=== PATIENT | male | born 1965 | race African-American/Black ===

== ENCOUNTER 2017-12-09 13:53 | Inpatient (IN) | payer BC, MEDICAID ==
[2017-12-09] MEDS ORDERED: Nitroglycerin TAB 0.4 MG* 0.4 MG TAB ONE (14:13)
[2017-12-09] MEDS ORDERED: Morphine INJ* 4 MG/ML 1 ML CARPUJECT ONE (14:13)
[2017-12-09] MEDS ORDERED: Ondansetron INJ* 2 MG/ML VIAL ONE (14:13)
[2017-12-09] MEDS: Nitroglycerin TAB 0.4 MG* 0.4 MG TAB SL ONE ×2 (14:15→14:21)
[2017-12-09] MEDS ORDERED: Morphine INJ* 4 MG/ML 1 ML CARPUJECT IV ONE ×2 (14:17→15:25)
[2017-12-09] MEDS ORDERED: Ondansetron INJ* 2 MG/ML VIAL IV ONE (14:17)
[2017-12-09] MEDS ORDERED: Aspirin TAB* 325 MG PO ONE (14:18)
[2017-12-09 14:29] LABS: ABS Basophils 0 10^3/ul (0-0.2); ABS Eosinophils 0.3 10^3/ul (0-0.6); ABS Lymphocytes 2.7 10^3/ul (1.0-4.8); ABS Neutrophils 6.6 10^3/ul (1.5-7.7); ABS Nucleated RBC 0 10^3/ul; Eosinophil % 2.5 % (0-6); Hematocrit 44 % (42-52); Hemoglobin 14.9 g/dl (14.0-18.0); Lymphocyte % 25.4 % (25-47); Mean Corpuscular HGB Conc 34 g/dl (31-36); Mean Corpuscular Hemoglobin 31 pg (27-31); Mean Corpuscular Volume 91 fL (80-94); Mean Platelet Volume 8 um3 (7.4-10.4); Nucleated Red Blood Cells % 0.1; Platelet Count 234 10^3/ul (150-450); Red Blood Count 4.81 10^6/ul (4.0-5.4); Red Cell Distribution Width 13 % (10.5-15); White Blood Count 10.7 10^3/ul (3.5-10.8)
[2017-12-09] MEDS ORDERED: LORazepam INJ* 2 MG/ML 1 ML VIAL IV PUSH ONE ×2 (14:31→15:25)
--- NOTE | 2017-12-09 14:46 | RAD ---
INDICATION: Chest pain. COMPARISON: Comparison is made with a prior chest x-ray study from June 16, 2008. TECHNIQUE: A portable view of the chest was obtained. FINDINGS: The patient is status post sternotomy. The heart is within normal limits in size. The lungs are underinflated and clear. No pleural effusion is seen. IMPRESSION: NO EVIDENCE FOR ACUTE DISEASE.
[2017-12-09 14:47] LABS: EGFR Non-African American 77.3 (>60)
[2017-12-09 14:49] LABS: INR 0.98 (0.77-1.02)
--- NOTE | 2017-12-09 15:12 | RAD ---
Indication: Shortness of breath and chest pain. History of prior DVT and PE. Comparison: December 09, 2017 chest radiograph. Technique: Following administration of 9.200 mCi xenon-133 by inhalation anterior and posterior ventilation images were obtained. Following the administration of 6.200 mCi of Tc-99m macroaggregated albumin, perfusion images were obtained in multiple projections. Report: The ventilation pattern is uniform with no evidence of air trapping. Solitary peripheral subsegmental perfusion defect at the level of the posterior lateral basal segments of the LEFT lower lobe reference the LPO view. No additional compelling perfusion defects evident. IMPRESSION: Solitary subsegmental perfusion defect at the LEFT lung base without corresponding ventilation or radiographic abnormality. Given absence of additional subsegmental or larger mismatched perfusion defects the exam is consistent with low probability for pulmonary embolism.
[2017-12-09] MEDS ORDERED: NS 0.9% 1000 ML* 1,000 ML IV ONE (16:00)
--- NOTE | 2017-12-09 16:26 | ED ---
Karri Pan Nilda, scribed for Jovon Connell MD on 12/09/17 at 1419 . HPI Chest Pain - HPI Summary HPI Summary: This patient is a 52 year old M presenting to [facility] with a chief complaint of constant moderate left-sided CP that radiates to left shoulder and left jaw since 1 hour ago. The patient rates the pain 6/10 in severity. Symptoms aggravated by exertion and recent stress (fight with brother and loss in the family). Symptoms alleviated by nothing including 3 NTG taken EPIC PROFESSIONAL 20 mins ago. Patient reports tingling in left arm, SOB, and BARAHONA (past couple of weeks). He states he has been recently travelling for the past 3 days. Pt states he's not on blood thinners and that he was told that he was not a good candidate for Coumadin. Pt had similar episode yesterday and visited an ED in [place] but left AMA. He notes he usually walks out of EDs AMA due to feeling anxious. Pt currently smokes 1 cigarette per day, does not drink ETOH, and intermittently uses marijuana. PMHx includes PA, CAD, lung issues, and CVA. PSHx CABG (2006) in [place], and filter in legs and lungs. - History of Current Complaint Chief Complaint: EDChestPainROMI Time Seen by Provider: 12/09/17 14:03 Hx Obtained From: Patient Onset/Duration: Started Hours Ago - 1 hour Timing: Constant Current Severity: Moderate Pain Intensity: 6 Pain Scale Used: 0-10 Numeric Chest Pain Location: Left Lateral Chest Pain Radiates: Yes Chest Pain Radiates To:: Shoulder - left, Jaw - left Aggravating Factor(s): Exertion, Other: - recent stress Alleviating Factor(s): Nothing Associated Signs and Symptoms: Positive: Other: - reports constant moderate left -sided CP that radiates to left shoulder and left jaw, tingling in left arm, SOB , and BARAHONA (past couple of weeks). - Allergy/Home Medications Allergies/Adverse Reactions: Allergies Allergy/AdvReac Type Severity Reaction Status Date / Time Fish Allergy Allergy Severe Anaphylatic Verified 12/09/17 14:20 Shock Iodine Allergy Severe Anaphylatic Verified 12/09/17 14:19 Shock Home Medications: Home Medications Aspirin EC Low Dose* [Ecotrin EC Low Dose 81 MG*] 81 mg PO DAILY 12/09/17 [ History Confirmed 12/09/17] Cyclobenzaprine TAB* [Flexeril 10 MG TAB*] 10 mg PO DAILY PRN 12/09/17 [History Confirmed 12/09/17] Metoprolol Tartrate TAB* [Lopressor TAB*] 25 mg PO QAM 12/09/17 [History Confirmed 12/09/17] Simvastatin TAB(NF) [Zocor(NF)] 20 mg PO QPM 12/09/17 [History Confirmed ] traZODone TAB* [Desyrel TAB*] 50 mg PO BEDTIME 12/09/17 [History Confirmed 12/09] PMH/Surg Hx/FS Hx/Imm Hx Cardiovascular History: Reports: Hx Coronary Artery Disease, Hx Myocardial Infarction Respiratory History: Reports: Hx Pulmonary Embolism Neurological History: Reports: Hx CVA - Surgical History Surgery Procedure, Year, and Place: CABG 2006 [place]. Filter in legs and lungs Infectious Disease History: No Infectious Disease History: Denies: Traveled Outside the [place] in Last 30 Days - Family History Known Family History: Positive: Other - lung CA and prostate CA - Social History Alcohol Use: None Hx Substance Use: Yes Substance Use Type: Reports: Marijuana Hx Tobacco Use: Yes Smoking Status (MU): Light Every Day Tobacco Smoker Type: Cigarettes Review of Systems Negative: Fever, Chills Negative: Erythema Negative: Sore Throat Positive: Chest Pain - left-sided CP that radiates to left shoulder and left jaw Positive: Shortness Of Breath, Other - BARAHONA, past couple of weeks. Negative: Cough Negative: Abdominal Pain, Vomiting, Nausea Negative: dysuria, hematuria Positive: Other - left arm tingling. Negative: Myalgia, Edema Negative: Rash Neurological: Other - negative dizziness All Other Systems Reviewed And Are Negative: Yes Physical Exam - Summary Physical Exam Summary: Constitutional: Well-developed, Well-nourished, Alert. (-) Distressed Skin: Warm, Dry, Scarring over veins in arms, sternotomy scar HENT: Normocephalic; Atraumatic Eyes: Conjunctiva normal Neck: Musculoskeletal ROM normal neck. (-) JVD, (-) Stridor, (-) Tracheal deviation Cardio: Rhythm regular, rate normal, Heart sounds normal; Intact distal pulses; The pedal pulses are 2+ and symmetric. Radial pulses are 2+ and symmetric. (-) Murmur Pulmonary/Chest wall: Effort normal. (-) Respiratory distress, (-) Wheezes, (-) Rales Abd: Soft, (-) Tenderness, (-) Distension, (-) Guarding, (-) Rebound Musculoskeletal: (-) Edema Lymph: (-) Cervical adenopathy Neuro: Alert, Oriented x3 Psych: Anxious Triage Information Reviewed: Yes Vital Signs On Initial Exam: Initial Vitals Temp Pulse Resp BP Pulse Ox 98.7 F 115 24 171/109 97 12/09/17 13:54 12/09/17 13:54 12/09/17 13:54 12/09/17 13:54 12/09/17 13:54 Vital Signs Reviewed: Yes Diagnostics - Vital Signs Vital Signs Temp Pulse Resp BP Pulse Ox 12/09/17 13:54 98.7 F 115 24 171/109 97 - Laboratory Lab Results: Lab Results 12/09/17 12/09/17 12/09/17 Range/Units 14:10 14:10 14:10 WBC 10.7 (3.5-10.8) 10^3/ul RBC 4.81 (4.0-5.4) 10^6/ul Hgb 14.9 (14.0-18.0) g/dl Hct 44 (42-52) % MCV 91 (80-94) fL MCH 31 (27-31) pg MCHC 34 (31-36) g/dl RDW 13 (10.5-15) % Plt Count 234 (150-450) 10^3/ul MPV 8 (7.4-10.4) um3 Neut % (Auto) 62.2 (38-83) % Lymph % (Auto) 25.4 (25-47) % [place] % (Auto) 9.5 H (1-9) % Eos % (Auto) 2.5 (0-6) % Baso % (Auto) 0.4 (0-2) % Absolute Neuts (auto) 6.6 (1.5-7.7) 10^3/ul Absolute Lymphs (auto) 2.7 (1.0-4.8) 10^3/ul Absolute Monos (auto) 1.0 H (0-0.8) 10^3/ul Absolute Eos (auto) 0.3 (0-0.6) 10^3/ul Absolute Basos (auto) 0 (0-0.2) 10^3/ul Absolute Nucleated RBC 0 10^3/ul Nucleated RBC % 0.1 INR (Anticoag Therapy) (0.77-1.02) APTT (26.0-36.3) seconds Sodium 138 (133-145) mmol/L Potassium 3.7 (3.5-5.0) mmol/L Chloride 105 (101-111) mmol/L Carbon Dioxide 22 (22-32) mmol/L Anion Gap 11 (2-11) mmol/L BUN 21 (6-24) mg/dL Creatinine 1.02 (0.67-1.17) mg/dL Est GFR ( Amer) 99.4 (>60) Est GFR (Non-Af Amer) 77.3 (>60) BUN/Creatinine Ratio 20.6 H (8-20) Glucose 122 H (70-100) mg/dL Lactic Acid 2.5 H* (0.5-2.0) mmol/L Calcium 9.6 (8.6-10.3) mg/dL Total Bilirubin 0.60 (0.2-1.0) mg/dL AST 28 (13-39) U/L ALT 27 (7-52) U/L Alkaline Phosphatase 110 H (34-104) U/L Troponin I 0.01 (<0.04) ng/mL Total Protein 7.6 (6.4-8.9) g/dL Albumin 4.6 (3.2-5.2) g/dL Globulin 3.0 (2-4) g/dL Albumin/Globulin Ratio 1.5 (1-3) 12/09/17 Range/Units 14:10 WBC (3.5-10.8) 10^3/ul RBC (4.0-5.4) 10^6/ul Hgb (14.0-18.0) g/dl Hct (42-52) % MCV (80-94) fL MCH (27-31) pg MCHC (31-36) g/dl RDW (10.5-15) % Plt Count (150-450) 10^3/ul MPV (7.4-10.4) um3 Neut % (Auto) (38-83) % Lymph % (Auto) (25-47) % [place] % (Auto) (1-9) % Eos % (Auto) (0-6) % Baso % (Auto) (0-2) % Absolute Neuts (auto) (1.5-7.7) 10^3/ul Absolute Lymphs (auto) (1.0-4.8) 10^3/ul Absolute Monos (auto) (0-0.8) 10^3/ul Absolute Eos (auto) (0-0.6) 10^3/ul Absolute Basos (auto) (0-0.2) 10^3/ul Absolute Nucleated RBC 10^3/ul Nucleated RBC % INR (Anticoag Therapy) 0.98 (0.77-1.02) APTT 33.9 (26.0-36.3) seconds Sodium (133-145) mmol/L Potassium (3.5-5.0) mmol/L Chloride (101-111) mmol/L Carbon Dioxide (22-32) mmol/L Anion Gap (2-11) mmol/L BUN (6-24) mg/dL Creatinine (0.67-1.17) mg/dL Est GFR ( Amer) (>60) Est GFR (Non-Af Amer) (>60) BUN/Creatinine Ratio (8-20) Glucose (70-100) mg/dL Lactic Acid (0.5-2.0) mmol/L Calcium (8.6-10.3) mg/dL Total Bilirubin (0.2-1.0) mg/dL AST (13-39) U/L ALT (7-52) U/L Alkaline Phosphatase (34-104) U/L Troponin I (<0.04) ng/mL Total Protein (6.4-8.9) g/dL Albumin (3.2-5.2) g/dL Globulin (2-4) g/dL Albumin/Globulin Ratio (1-3) Result Diagrams: 12/09/17 14:10 12/09/17 14:10 Lab Statement: Any lab studies that have been ordered have been reviewed, and results considered in the medical decision making process. - Radiology CXR Radiology Interpretation Completed By: Radiologist - CXR, per radiologist, reveals NAD. Dr. Connell has reviewed this radiology report. - EKG 1525 Cardiac Rate: NL EKG Rhythm: Sinus Rhythm - 95 bpm EKG Interpretation: no STEMI - Additional Comments Diagnostic Additional Comments: Lung perfusion, per radiologist, reveals Solitary subsegmental perfusion defect at the LEFT lung base without corresponding ventilation or radiographic abnormality. Given absence of additional subsegmental or larger mismatched perfusion defects the exam is consistent with low probability for pulmonary embolism. Dr. Connell has reviewed this radiology report. Re-Evaluation - Re-Evaluation First Eval Re-Evaluation Time: 15:20 Comment: Pain subsided but is returning 7/10. Pt states his brother would not tell him what he put in his marijuana and that brother often plays pranks on him. He is suspicious that his marijuana was laced with other drugs. Second Eval Re-Evaluation Time: 16:04 Comment: Pt called older brother on phone who talked to younger brother ( prankster). Younger brother admits to lacing marijuana with cocaine. Pt agreeable to hospital admission. Chest Pain Course/Dx - Course Assessment/Plan: This patient is a 52 year old M presenting to [facility] with a chief complaint of constant moderate left-sided CP that radiates to left shoulder and left jaw since 1 hour ago. The patient rates the pain 6/10 in severity. Symptoms aggravated by exertion and recent stress (fight with brother and loss in the family). Symptoms alleviated by nothing including 3 NTG taken EPIC PROFESSIONAL 20 mins ago. Patient reports tingling in left arm, SOB, and BARAHONA (past couple of weeks). He states he has been recently travelling for the past 3 days. Pt states he's not on blood thinners and that he was told that he was not a good candidate for Coumadin. Pt had similar episode yesterday and visited an ED in [place] but left AMA. He notes he usually walks out of EDs AMA due to feeling anxious. Pt currently smokes 1 cigarette per day, does not drink ETOH , and intermittently uses marijuana. PMHx includes PA, CAD, lung issues, and CVA. PSHx CABG (2006) in [place], and filter in legs and lungs. Pending EKG, CXR, Lung Perfusion, and Labs. Blood work is without significant abnormalities except elevated lactic (2.5). An EKG reveals NSR, 95 bpm, no STEMI. Lung perfusion, per radiologist, reveals Solitary subsegmental perfusion defect at the LEFT lung base without corresponding ventilation or radiographic abnormality. Given absence of additional subsegmental or larger mismatched perfusion defects the exam is consistent with low probability for pulmonary embolism. Dr. Connell has reviewed this radiology report. CXR, per radiologist, reveals NAD. Dr. Connell has reviewed this radiology report. In the ED course, the patient was given aspirin, Ativan, Morphine, NTG, and Zofran. 1620 Dr. Varela (Hospitalist) agrees to admit pt. The pt is stable and will be admitted with a diagnosis of CP unspecified and cocaine CP. Pt understands and is agreeable to this plan. Pt did have relief of chest pain with nitro, morphine and ativan during today's visit. Rule out ACS in this pt with known CAD/CABG - Diagnoses Provider Diagnoses: cocaine chest pain, Chest pain, unspecified - Provider Notifications Discussed Care Of Patient With: Adriana Varela - Hospitalist Time Discussed With Above Provider: 16:20 Instructed by Provider To: Admit As Inpatient Discharge - Discharge Plan Condition: Stable Disposition: ADMITTED TO [facility] Referrals: No Primary Care Phys,NOPCP [Primary Care Provider] - The documentation as recorded by the Karri keen Nilda accurately reflects the service I personally performed and the decisions made by , Jovon Connell MD.
[2017-12-09] MEDS: Nitroglycerin TAB 0.4 MG* 0.4 MG TAB SL PRN ×2 (18:37→18:45)
[2017-12-09] MEDS ORDERED: Cyclobenzaprine TAB* 10 MG PO PRN (18:38)
[2017-12-09] MEDS: LORazepam TAB(*) 1 MG PO PRN (19:15)
[2017-12-09] MEDS: Acetaminophen TAB* 325 MG PO PRN (19:15)
--- NOTE | 2017-12-09 23:16 | HP ---
HISTORY AND PHYSICAL: DATE OF ADMISSION: 12/09/17 PRIMARY CARE PHYSICIAN: Unknown. COMMERCIAL SALES REPRESENTATIVE: Unknown. CHIEF COMPLAINT: Chest pain. HISTORY OF PRESENT ILLNESS: This is a 52-year-old male with a history of coronary artery disease, status post CABG, PE and CVA, who presents with chest pain for 2 days after smoking marijuana that was laced with cocaine. He reports the pain as in the middle of the chest with radiation to both arms. It is unchanged with exertion, but sometimes gets worse with lying down flat. It is not associated with diaphoresis, nausea, vomiting, but does occasionally come with shortness of breath, unrelated. He also reports worsening dyspnea on exertion over the past month. He reports that he is losing weight, not gaining and he is unable to tell me where he receives his medical care. He names approximately 8 different facilities where he has had services and procedures, but he is unclear about the timing and reason for each one. He does state that he takes his medications; however, cannot tell me who prescribes them to him. His chest pain is currently resolved. His only complaint right now is feeling anxious and very upset that his brother would lace the marijuana with cocaine. PAST MEDICAL HISTORY: 1. Coronary artery disease, status post CABG. He thinks this was done in [place]. 2. Pulmonary embolus. He thinks this was in 2009, but is not sure where. 3. CVA. 4. Schizophrenia. 5. Brain aneurysm. HOME MEDICATIONS: 1. Metoprolol. 2. Aspirin. 3. Simvastatin. 4. Flexeril. The doses are unclear. FAMILY HISTORY: Significant for coronary artery disease. SOCIAL HISTORY: He has been in several different prisons and jails, and this is where he reports his home is at this time. The closest person in his life is his children's mother, Katina. Katina's phone number [phone]. He smokes 1 cigarette per day. He occasionally drinks alcohol and smokes marijuana. REVIEW OF SYSTEMS: January notes weight loss of 20 pounds over the 3 days, chest pain that is unchanged by exertion, anxiety, and mood swings. He denies orthopnea, weight gain, lower extremity edema, abdominal bloating, or syncope. PHYSICAL EXAMINATION GENERAL: Alert, anxious and in no distress. VITAL SIGNS: Blood pressure 109/90, pulse ox 99% on room air, respiratory rate 23, heart rate 83. HEENT: Some proptosis is noted. Pupils are equal, round and reactive to light. Mucosa is moist. NECK: No JVP. No adenopathy. LUNGS: Clear bilaterally. CHEST: CABG incision is well healed. No pain to palpation. Regular rate and rhythm. No murmurs. PMI is not displaced. ABDOMEN: Soft, nontender, and nondistended. EXTREMITIES: No lower extremity edema. No rashes. NEUROLOGIC: Strength is 5+ throughout. Sensation is intact. Oriented x3, but tangential and anxious. LABORATORY DATA: Troponin 0.01, 0.02. Sodium 138, potassium 3.7, chloride 105 , bicarb 22, creatinine 1.02. White blood cells 10.7, hemoglobin 14.9. UDS is positive for cocaine, cannabinoid and opiates. V/Q scan: Solitary subsegmental perfusion defect at the left lung base without corresponding ventilation or radiographic abnormalities. Given absence of additional subsegmental or larger mismatch perfusion defect, the exam is consistent with low probability for pulmonary embolus. EKG showed normal sinus rhythm with a normal axis, normal intervals and no ST or T wave changes. ASSESSMENT AND PLAN: This is a 52-year-old male with extensive vascular history and schizophrenia presenting with chest pain 2 days after he smoked marijuana laced with cocaine. 1. Atypical chest pain. This is likely associated with his cocaine use. This is concerning in a patient with known coronary disease and he should be monitored and ruled out. His troponins are negative thus far. He needs 1 more to rule him out. EKG is not ischemic. Start nitro p.r.n. 2. Dyspnea on exertion. This is concerning for cardiomyopathy knowing his coronary history. However, may also be associated with pulmonary disease. He does not have other stigmata of heart failure such as orthopnea, weight gain and edema. It may be helpful to get an echo before he leaves. 3. Schizophrenia. He may need psychiatric evaluation as he may not be safe to make decisions for himself based on his interview with me today. 4. Questionable history of pulmonary embolus. It will be helpful to know where this was and what year it was. However, he cannot recall when or where this was diagnosed. 5. Cerebrovascular accident. Again, he is unsure, when or where this was diagnosed. He does report that he takes a baby aspirin daily. We will continue this as well his statins. 6. Admit to telemetry floor for monitoring and chest pain rule out. TIME SPENT: Greater than 60 minutes were spent on this admission. [id number]/[facility] #: [id number] CORBIN
[2017-12-10] MEDS: traZODone TAB* 50 MG TAB PO SCH ×2 (01:45→21:24)
[2017-12-10] MEDS: Acetaminophen TAB* 325 MG PO PRN ×3 (04:12→18:03)
[2017-12-10] MEDS ORDERED: Morphine INJ* 2 MG/ML 1 ML SYRINGE (TWO MG - NEW SYRINGE VERSION) ONE (06:13)
[2017-12-10] MEDS ORDERED: Morphine INJ* 2 MG/ML 1 ML SYRINGE (TWO MG - NEW SYRINGE VERSION) IV ONE (06:15)
[2017-12-10] MEDS: LORazepam TAB(*) 1 MG PO PRN ×4 (07:38→20:09)
[2017-12-10] MEDS: Metoprolol Tartrate TAB* 25 MG PO SCH (07:38)
[2017-12-10] MEDS: Nitroglycerin TAB 0.4 MG* 0.4 MG TAB SL PRN ×4 (07:38→12:00)
[2017-12-10] MEDS: Aspirin EC Low Dose* 81 MG TAB.EC PO SCH (07:38)
[2017-12-10 08:12] LABS: ABS Basophils 0 10^3/ul (0-0.2); ABS Eosinophils 0.2 10^3/ul (0-0.6); ABS Lymphocytes 1.9 10^3/ul (1.0-4.8); ABS Monocytes 0.7 10^3/ul (0-0.8); ABS Neutrophils 3.5 10^3/ul (1.5-7.7); ABS Nucleated RBC 0 10^3/ul; Eosinophil % 3.1 % (0-6); Hematocrit 41 % (42-52); Hemoglobin 13.7 g/dl (14.0-18.0); Lymphocyte % 29.9 % (25-47); Mean Corpuscular HGB Conc 33 g/dl (31-36); Mean Corpuscular Hemoglobin 30 pg (27-31); Mean Corpuscular Volume 92 fL (80-94); Mean Platelet Volume 8 um3 (7.4-10.4); Nucleated Red Blood Cells % 0; Platelet Count 198 10^3/ul (150-450); Red Blood Count 4.51 10^6/ul (4.0-5.4); Red Cell Distribution Width 13 % (10.5-15); White Blood Count 6.3 10^3/ul (3.5-10.8)
[2017-12-10] MEDS ORDERED: Morphine INJ* 2 MG/ML 1 ML SYRINGE (TWO MG - NEW SYRINGE VERSION) IV PRN (08:24)
--- NOTE | 2017-12-10 11:16 | PN ---
Subjective Date of Service: 12/10/17 Interval History: Pt is a very poor historian. sometimes he seems not to be willing to give the information asked. 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 prescribed narcotics to him, pt stated that he was his PCP last year was prescribed Percocet. Apparently pt is planning to relocate to [place] or [place]. Pt c/o CP related to exercise x 2 months. Now pain is "minimal" when lying down in bed. Pain fills like a building sitting on the chest. Objective Active Medications: Acetaminophen (Tylenol Tab*) 650 mg PO Q6H PRN PRN Reason: PAIN Last Admin: 12/10/17 04:12 Dose: 650 mg Aspirin (Aspirin Ec Low Dose*) 81 mg PO DAILY [facility] Last Admin: 12/10/17 07:38 Dose: 81 mg Atorvastatin Calcium (Lipitor*) 10 mg PO QPM [facility] Cyclobenzaprine HCl (Flexeril Tab*) 10 mg PO DAILY PRN PRN Reason: PAIN Lorazepam (Ativan Tab(*)) 1 mg PO Q4H PRN PRN Reason: ANXIETY Last Admin: 12/10/17 07:38 Dose: 1 mg Metoprolol Tartrate (Lopressor Tab*) 25 mg PO QAM [facility] Last Admin: 12/10/17 07:38 Dose: 25 mg Nitroglycerin (Nitroglycerin Tab 0.4 Mg*) 0.4 mg SL Q5M PRN PRN Reason: ANGINA Last Admin: 12/10/17 08:05 Dose: 0.4 mg Trazodone HCl (Desyrel Tab*) 50 mg PO BEDTIME [facility] Last Admin: 12/10/17 01:45 Dose: Not Given Vital Signs - 8 hr 12/10/17 12/10/17 12/10/17 04:07 06:14 07:15 Temperature 98.6 F Pulse Rate 78 Respiratory 20 20 20 Rate Blood Pressure 114/67 (mmHg) O2 Sat by Pulse 100 Oximetry 12/10/17 12/10/17 12/10/17 07:38 07:39 07:53 Temperature Pulse Rate Respiratory 20 20 Rate Blood Pressure 122/82 118/78 (mmHg) O2 Sat by Pulse Oximetry 12/10/17 12/10/17 12/10/17 08:06 09:02 09:30 Temperature 97.5 F Pulse Rate 95 Respiratory 18 18 18 Rate Blood Pressure 116/88 (mmHg) O2 Sat by Pulse 100 Oximetry 12/10/17 10:08 Temperature Pulse Rate Respiratory 16 Rate Blood Pressure (mmHg) O2 Sat by Pulse Oximetry Oxygen Devices in Use Now: None Appearance: 52 yo M in nAD, aAOx3, very poor and disorganized historian Eyes: No Scleral Icterus, PERRLA Ears/Nose/Mouth/Throat: NL Teeth, Lips, Gums, Mucous Membranes Moist Neck: NL Appearance and Movements; NL JVP, Trachea Midline Respiratory: Symmetrical Chest Expansion and Respiratory Effort, Clear to Auscultation Cardiovascular: NL Sounds; No Murmurs; No JVD, RRR Abdominal: NL Sounds; No Tenderness; No Distention, No Hepatosplenomegaly Lymphatic: No Cervical Adenopathy Extremities: No Edema, No Clubbing, Cyanosis Skin: No Rash or Ulcers, No Nodules or Sclerosis Neurological: Alert and Oriented x 3, NL Muscle Strength and Tone Result Diagrams: 12/10/17 07:53 12/10/17 07:53 Additional Lab and Data: Lab Results 12/09/17 12/09/17 12/09/17 Range/Units 14:10 14:10 14:10 WBC 10.7 (3.5-10.8) 10^3/ul RBC 4.81 (4.0-5.4) 10^6/ul Hgb 14.9 (14.0-18.0) g/dl Hct 44 (42-52) % MCV 91 (80-94) fL MCH 31 (27-31) pg MCHC 34 (31-36) g/dl RDW 13 (10.5-15) % Plt Count 234 (150-450) 10^3/ul MPV 8 (7.4-10.4) um3 Neut % (Auto) 62.2 (38-83) % Lymph % (Auto) 25.4 (25-47) % [place] % (Auto) 9.5 H (1-9) % Eos % (Auto) 2.5 (0-6) % Baso % (Auto) 0.4 (0-2) % Absolute Neuts (auto) 6.6 (1.5-7.7) 10^3/ul Absolute Lymphs (auto) 2.7 (1.0-4.8) 10^3/ul Absolute Monos (auto) 1.0 H (0-0.8) 10^3/ul Absolute Eos (auto) 0.3 (0-0.6) 10^3/ul Absolute Basos (auto) 0 (0-0.2) 10^3/ul Absolute Nucleated RBC 0 10^3/ul Nucleated RBC % 0.1 INR (Anticoag Therapy) (0.77-1.02) APTT (26.0-36.3) seconds Sodium 138 (133-145) mmol/L Potassium 3.7 (3.5-5.0) mmol/L Chloride 105 (101-111) mmol/L Carbon Dioxide 22 (22-32) mmol/L Anion Gap 11 (2-11) mmol/L BUN 21 (6-24) mg/dL Creatinine 1.02 (0.67-1.17) mg/dL Est GFR ( Amer) 99.4 (>60) Est GFR (Non-Af Amer) 77.3 (>60) BUN/Creatinine Ratio 20.6 H (8-20) Glucose 122 H (70-100) mg/dL Lactic Acid 2.5 H* (0.5-2.0) mmol/L Calcium 9.6 (8.6-10.3) mg/dL Total Bilirubin 0.60 (0.2-1.0) mg/dL AST 28 (13-39) U/L ALT 27 (7-52) U/L Alkaline Phosphatase 110 H (34-104) U/L Troponin I 0.01 (<0.04) ng/mL Total Protein 7.6 (6.4-8.9) g/dL Albumin 4.6 (3.2-5.2) g/dL Globulin 3.0 (2-4) g/dL Albumin/Globulin Ratio 1.5 (1-3) 12/09/17 Range/Units 14:10 WBC (3.5-10.8) 10^3/ul RBC (4.0-5.4) 10^6/ul Hgb (14.0-18.0) g/dl Hct (42-52) % MCV (80-94) fL MCH (27-31) pg MCHC (31-36) g/dl RDW (10.5-15) % Plt Count (150-450) 10^3/ul MPV (7.4-10.4) um3 Neut % (Auto) (38-83) % Lymph % (Auto) (25-47) % [place] % (Auto) (1-9) % Eos % (Auto) (0-6) % Baso % (Auto) (0-2) % Absolute Neuts (auto) (1.5-7.7) 10^3/ul Absolute Lymphs (auto) (1.0-4.8) 10^3/ul Absolute Monos (auto) (0-0.8) 10^3/ul Absolute Eos (auto) (0-0.6) 10^3/ul Absolute Basos (auto) (0-0.2) 10^3/ul Absolute Nucleated RBC 10^3/ul Nucleated RBC % INR (Anticoag Therapy) 0.98 (0.77-1.02) APTT 33.9 (26.0-36.3) seconds Sodium (133-145) mmol/L Potassium (3.5-5.0) mmol/L Chloride (101-111) mmol/L Carbon Dioxide (22-32) mmol/L Anion Gap (2-11) mmol/L BUN (6-24) mg/dL Creatinine (0.67-1.17) mg/dL Est GFR ( Amer) (>60) Est GFR (Non-Af Amer) (>60) BUN/Creatinine Ratio (8-20) Glucose (70-100) mg/dL Lactic Acid (0.5-2.0) mmol/L Calcium (8.6-10.3) mg/dL Total Bilirubin (0.2-1.0) mg/dL AST (13-39) U/L ALT (7-52) U/L Alkaline Phosphatase (34-104) U/L Troponin I (<0.04) ng/mL Total Protein (6.4-8.9) g/dL Albumin (3.2-5.2) g/dL Globulin (2-4) g/dL Albumin/Globulin Ratio (1-3) Assess/Plan/Problems-Billing Assessment: 52 yo M with h/o CABG in 2008, dyslipidemia, HTN presents with exertional CP - Patient Problems (1) Chest pain Comment: suggestive of stable angina cont ASA, BB, statin Stress test planned for Tuesday. will get Echo tomorrow. cont Nitro prn CP (2) HTN (hypertension) Comment: controlled with meds (3) Dyslipidemia Comment: cont statin check lipid profile (4) Schizophrenia Comment: currently not on meds disorganized thinking. Psych consult requested by pt himself (5) DVT prophylaxis Comment: low risk, ambulation encouraged Status and Disposition: inpatient
[2017-12-10] MEDS: Ondansetron ODT TAB* 4 MG PO PRN ×2 (13:26→20:09)
[2017-12-10] MEDS: Atorvastatin* 10 MG TAB PO SCH (16:09)
[2017-12-11] MEDS: Aspirin EC Low Dose* 81 MG TAB.EC PO SCH (08:20)
[2017-12-11] MEDS: Metoprolol Tartrate TAB* 25 MG PO SCH (08:20)
[2017-12-11] MEDS: Nitroglycerin TAB 0.4 MG* 0.4 MG TAB SL PRN ×3 (08:21→08:43)
[2017-12-11] MEDS: LORazepam TAB(*) 1 MG PO PRN ×3 (08:21→20:03)
[2017-12-11] MEDS: Ondansetron ODT TAB* 4 MG PO PRN (08:38)
--- NOTE | 2017-12-11 13:18 | PN ---
Subjective Date of Service: 12/11/17 Interval History: Pt woke up with CP and sweats. His troponin is neg . now CP free. Objective Active Medications: Acetaminophen (Tylenol Tab*) 650 mg PO Q6H PRN PRN Reason: PAIN Last Admin: 12/10/17 18:03 Dose: 650 mg Aspirin (Aspirin Ec Low Dose*) 81 mg PO DAILY [facility] Last Admin: 12/11/17 08:20 Dose: 81 mg Atorvastatin Calcium (Lipitor*) 10 mg PO QPM [facility] Last Admin: 12/10/17 16:09 Dose: 10 mg Cyclobenzaprine HCl (Flexeril Tab*) 10 mg PO DAILY PRN PRN Reason: PAIN Lorazepam (Ativan Tab(*)) 1 mg PO Q4H PRN PRN Reason: ANXIETY Last Admin: 12/11/17 12:43 Dose: 1 mg Metoprolol Tartrate (Lopressor Tab*) 25 mg PO QAM [facility] Last Admin: 12/11/17 08:20 Dose: 25 mg Nitroglycerin (Nitroglycerin Tab 0.4 Mg*) 0.4 mg SL Q5M PRN PRN Reason: ANGINA Last Admin: 12/11/17 08:43 Dose: 0.4 mg Ondansetron HCl (Zofran Odt Tab*) 4 mg PO Q6H PRN PRN Reason: NAUSEA Last Admin: 12/11/17 08:38 Dose: 4 mg Trazodone HCl (Desyrel Tab*) 50 mg PO BEDTIME [facility] Last Admin: 12/10/17 21:24 Dose: 50 mg Vital Signs - 8 hr 12/11/17 12/11/17 12/11/17 07:51 08:00 08:21 Temperature 98.1 F Pulse Rate 64 Respiratory 16 18 18 Rate Blood Pressure 137/81 (mmHg) O2 Sat by Pulse 100 Oximetry 12/11/17 12/11/17 12/11/17 08:35 08:46 08:52 Temperature Pulse Rate 94 94 109 Respiratory Rate Blood Pressure 119/70 107/85 109/75 (mmHg) O2 Sat by Pulse 99 100 98 Oximetry 12/11/17 12/11/17 12/11/17 11:04 11:36 12:43 Temperature 98.5 F Pulse Rate 84 Respiratory 18 16 16 Rate Blood Pressure 136/80 (mmHg) O2 Sat by Pulse 99 Oximetry Oxygen Devices in Use Now: None Appearance: 52 yo M in nAD, aAOx3 Eyes: No Scleral Icterus, PERRLA Ears/Nose/Mouth/Throat: NL Teeth, Lips, Gums, Mucous Membranes Moist Neck: NL Appearance and Movements; NL JVP, Trachea Midline Respiratory: Symmetrical Chest Expansion and Respiratory Effort, Clear to Auscultation Cardiovascular: NL Sounds; No Murmurs; No JVD, RRR Abdominal: NL Sounds; No Tenderness; No Distention Lymphatic: No Cervical Adenopathy Extremities: No Edema, No Clubbing, Cyanosis Skin: No Rash or Ulcers, No Nodules or Sclerosis Neurological: Alert and Oriented x 3, NL Muscle Strength and Tone Result Diagrams: 12/10/17 07:53 12/10/17 07:53 Additional Lab and Data: Lab Results 12/09/17 12/09/17 12/09/17 Range/Units 14:10 14:10 14:10 WBC 10.7 (3.5-10.8) 10^3/ul RBC 4.81 (4.0-5.4) 10^6/ul Hgb 14.9 (14.0-18.0) g/dl Hct 44 (42-52) % MCV 91 (80-94) fL MCH 31 (27-31) pg MCHC 34 (31-36) g/dl RDW 13 (10.5-15) % Plt Count 234 (150-450) 10^3/ul MPV 8 (7.4-10.4) um3 Neut % (Auto) 62.2 (38-83) % Lymph % (Auto) 25.4 (25-47) % [place] % (Auto) 9.5 H (1-9) % Eos % (Auto) 2.5 (0-6) % Baso % (Auto) 0.4 (0-2) % Absolute Neuts (auto) 6.6 (1.5-7.7) 10^3/ul Absolute Lymphs (auto) 2.7 (1.0-4.8) 10^3/ul Absolute Monos (auto) 1.0 H (0-0.8) 10^3/ul Absolute Eos (auto) 0.3 (0-0.6) 10^3/ul Absolute Basos (auto) 0 (0-0.2) 10^3/ul Absolute Nucleated RBC 0 10^3/ul Nucleated RBC % 0.1 INR (Anticoag Therapy) (0.77-1.02) APTT (26.0-36.3) seconds Sodium 138 (133-145) mmol/L Potassium 3.7 (3.5-5.0) mmol/L Chloride 105 (101-111) mmol/L Carbon Dioxide 22 (22-32) mmol/L Anion Gap 11 (2-11) mmol/L BUN 21 (6-24) mg/dL Creatinine 1.02 (0.67-1.17) mg/dL Est GFR ( Amer) 99.4 (>60) Est GFR (Non-Af Amer) 77.3 (>60) BUN/Creatinine Ratio 20.6 H (8-20) Glucose 122 H (70-100) mg/dL Lactic Acid 2.5 H* (0.5-2.0) mmol/L Calcium 9.6 (8.6-10.3) mg/dL Total Bilirubin 0.60 (0.2-1.0) mg/dL AST 28 (13-39) U/L ALT 27 (7-52) U/L Alkaline Phosphatase 110 H (34-104) U/L Troponin I 0.01 (<0.04) ng/mL Total Protein 7.6 (6.4-8.9) g/dL Albumin 4.6 (3.2-5.2) g/dL Globulin 3.0 (2-4) g/dL Albumin/Globulin Ratio 1.5 (1-3) 12/09/17 Range/Units 14:10 WBC (3.5-10.8) 10^3/ul RBC (4.0-5.4) 10^6/ul Hgb (14.0-18.0) g/dl Hct (42-52) % MCV (80-94) fL MCH (27-31) pg MCHC (31-36) g/dl RDW (10.5-15) % Plt Count (150-450) 10^3/ul MPV (7.4-10.4) um3 Neut % (Auto) (38-83) % Lymph % (Auto) (25-47) % [place] % (Auto) (1-9) % Eos % (Auto) (0-6) % Baso % (Auto) (0-2) % Absolute Neuts (auto) (1.5-7.7) 10^3/ul Absolute Lymphs (auto) (1.0-4.8) 10^3/ul Absolute Monos (auto) (0-0.8) 10^3/ul Absolute Eos (auto) (0-0.6) 10^3/ul Absolute Basos (auto) (0-0.2) 10^3/ul Absolute Nucleated RBC 10^3/ul Nucleated RBC % INR (Anticoag Therapy) 0.98 (0.77-1.02) APTT 33.9 (26.0-36.3) seconds Sodium (133-145) mmol/L Potassium (3.5-5.0) mmol/L Chloride (101-111) mmol/L Carbon Dioxide (22-32) mmol/L Anion Gap (2-11) mmol/L BUN (6-24) mg/dL Creatinine (0.67-1.17) mg/dL Est GFR ( Amer) (>60) Est GFR (Non-Af Amer) (>60) BUN/Creatinine Ratio (8-20) Glucose (70-100) mg/dL Lactic Acid (0.5-2.0) mmol/L Calcium (8.6-10.3) mg/dL Total Bilirubin (0.2-1.0) mg/dL AST (13-39) U/L ALT (7-52) U/L Alkaline Phosphatase (34-104) U/L Troponin I (<0.04) ng/mL Total Protein (6.4-8.9) g/dL Albumin (3.2-5.2) g/dL Globulin (2-4) g/dL Albumin/Globulin Ratio (1-3) Assess/Plan/Problems-Billing Assessment: 52 yo M with h/o CABG in 2008, dyslipidemia, HTN presents with exertional CP - Patient Problems (1) Chest pain Comment: suggestive of stable angina cont ASA, BB, statin Stress test planned for Tuesday. Echo today pending cont Nitro prn CP (2) HTN (hypertension) Comment: controlled with meds (3) Dyslipidemia Comment: cont statin LDL 25 (4) Schizophrenia Comment: currently not on meds disorganized thinking. Psych consult requested by pt himself (5) DVT prophylaxis Comment: low risk, ambulation encouraged Status and Disposition: inpatient
[2017-12-11] MEDS: Atorvastatin* 10 MG TAB PO SCH (16:49)
[2017-12-11] MEDS: traZODone TAB* 50 MG TAB PO SCH (20:00)
--- NOTE | 2017-12-12 06:35 | PTEDU ---
Patient Name: CLAIRE SYLVESTER CLAIRE SYLVESTER selected video: Depression Screening to view on 12/12/2017 at 6:34:43 AM from [id number]
--- NOTE | 2017-12-12 06:43 | PTEDU ---
Patient Name: CLAIRE SYLVESTER CLAIRE SYLVESTER selected video: Abdominal Aortic Aneurysm - Open Repair to view on 12/12/2017 at 6:43:1 3 AM from [id number]
[2017-12-12] MEDS: Aspirin EC Low Dose* 81 MG TAB.EC PO SCH (08:54)
[2017-12-12] MEDS: Metoprolol Tartrate TAB* 25 MG PO SCH (08:54)
[2017-12-12] MEDS: LORazepam TAB(*) 1 MG PO PRN ×2 (08:58→15:56)
[2017-12-12] MEDS ORDERED: Influenza VAC *QUAD* 2017-18* 0.5 ML SYRINGE IM ONE (09:00)
--- NOTE | 2017-12-12 09:04 | ECHO ---
Patient: JANUARY, CLAIRE [facility] Rec#: [id number] : 1965 Date: 12/12/2017 Age: 52y Height: 175.26 cm / 69.0 in Weight: 100.24 kg / 220.9 lbs Sex: M BSA: 2.16 Room#: [facility] Admit Date#: 12/09/2017 Type: Inpatient Referring: Rebeca Malave MD Reading: Colt Gan MD Studio Potter: Isabelle Yu [facility] Transthoracic Echocardiogram Indication: CP BP: 152/86 HR: 96 Rhythm: NSR Findings History: CAD,CABG,s/p partial pericardial window 2004,CVA,schizophrenia,brain aneurysm. Technical Comments: The study quality is good. Completed at 0840. Left Ventricle: The left ventricular chamber size is normal. Mild to moderate concentric left ventricular hypertrophy is observed. The estimated ejection fraction is greater than 65%. Abnormal left ventricular diastolic function is observed. Abnormal left ventricular diastolic filling is observed, consistent with impaired relaxation. Left Atrium: The left atrial chamber size is normal. Right Ventricle: The right ventricle wall thickness is mildly increased.6 mm. The right ventricular cavity size is normal. The right ventricular global systolic function is mildly reduced. Flattened in systole and diastole consistent with right ventricular pressure and volume overload. Right Atrium: The right atrial cavity size is normal. Aortic Valve: The aortic valve is trileaflet. The aortic valve leaflets are mildly thickened. There is mild aortic regurgitation. There is no evidence of aortic stenosis. Mitral Valve: The mitral valve leaflets are mildly thickened. There is no evidence of mitral regurgitation. There is no evidence of mitral stenosis. Tricuspid Valve: The tricuspid valve leaflets are normal. There is no evidence of tricuspid valve regurgitation. Unable to estimate the right ventricular systolic pressure. There is no tricuspid stenosis. Pulmonic Valve: The pulmonic valve appears normal. There is a trace pulmonic regurgitation. There is no pulmonic stenosis. Pericardium: The pericardium appears normal. There is no pericardial effusion. Aorta: There is no dilatation of the ascending aorta. There is no dilatation of the aortic arch. There is no dilation of the aortic root. Pulmonary Artery: The main pulmonary artery appears normal. Venous: The venous system is not well visualized. Conclusions Mild to moderate concentric left ventricular hypertrophy is observed. The estimated ejection fraction is greater than 65%. Abnormal left ventricular diastolic filling is observed, consistent with impaired relaxation. The right ventricle wall thickness is mildly increased.6 mm. The right ventricular global systolic function is mildly reduced. The aortic valve leaflets are mildly thickened. There is mild aortic regurgitation. Unable to estimate the right ventricular systolic pressure. No significant MR orTR seen. Compared to 2008, the degree of LVH has increased from mild and the RV hypokinesis/septal flattening/RVH are new. Measurements Name Value Normal Range RVIDd (AP) 2D 2.7 cm (0.9 - 2.6) RVDdMajor (2D) 2.6 cm (2.2 - 4.4) RAd ISD 4CH 4.3 cm (3.4 - 4.9) RA (A4C)W 3 cm (2.9 - 4.6) IVSd (2D) 1.1 cm (0.6 - 1) LVPWd (2D) 1.5 cm (0.6 - 1) LVIDd (2D) 3.6 cm (3.6 - 5.4) LVIDs (2D) 2.3 cm - LV FS (2D) 36 % (25 - 45) Aortic Annulus 2.1 cm (1.4 - 2.6) Ao root diameter (2D) 2.9 cm (2.1 - 3.5) Ascending Ao 2.9 cm (2.1 - 3.4) Aortic arch 2.3 cm (1.8 - 3.4) LA dimension (AP) 2D 3.3 cm (2.3 - 3.8) LAd ISD 4CH 4.7 cm (2.9 - 5.3) LA ISD 4CH W 3.1 cm (2.5 - 4.5) Name Value Normal Range LA ESV SP 4CH (A/L) 21 ml - LA ESV SP 2CH (A/L) 46 ml - LA ESV BP (A/L) 34 ml - LA ESV BP (A/L) index 15.52 ml/m2 - LA ESV SP 4CH (MOD) 20 ml - LA ESV SP 2CH (MOD) 43 ml - Name Value Normal Range MV E-wave Vmax 0.5 m/sec - MV deceleration time 185 msec - MV A-wave Vmax 0.6 m/sec - MV E:A ratio 0.89 ratio - LV septal e' Vmax 0.06 m/sec - LV lateral e' Vmax 0.1 m/sec - LV E:e' septal ratio 8.33 ratio - LV E:e' lateral ratio 5 ratio - Name Value Normal Range AV Vmax 1.3 m/sec - AV VTI 18.9 cm - AV peak gradient 7.67 mmHg - AV mean gradient 2.89 mmHg - LVOT Vmax 1 m/sec - LVOT VTI 18.3 cm - LVOT peak gradient 4.36 mmHg - LVOT mean gradient 2.31 mmHg - AR PHT 334 msec - AR peak gradient 100 mmHg - Name Value Normal Range PV Vmax 0.9 m/sec - PV peak gradient 3.09 mmHg -
[2017-12-12] MEDS ORDERED: Aminophylline IV* 25 MG/ML 10 ML VIAL ONE (12:49)
[2017-12-12] MEDS ORDERED: Regadenoson* 0.4 MG/5 ML SYRINGE ONE (12:49)
[2017-12-12] MEDS ORDERED: Metoprolol Tartrate IV* 1 MG/ML 5 ML VIAL ONE (13:45)
[2017-12-12] MEDS ORDERED: Nitroglycerin TAB 0.4 MG* 0.4 MG TAB SL ONE (15:00)
[2017-12-12] MEDS ORDERED: Metoprolol Tartrate IV* 1 MG/ML 5 ML VIAL IV ONE (15:00)
--- NOTE | 2017-12-12 15:11 | RAD ---
Edited for charges. Indication: Chest pain. Myocardial perfusion scan was performed utilizing 1 day protocol. 10.2 mCi of technetium 99m tetrofosmin was injected for the rest portion of the study. Pharmacological stress was applied and 25.7 mCi of technetium 99m tetrofosmin was then injected for the stress portion of the study. There is homogeneous distribution of the radiotracer throughout the left ventricle. The left ventricle appears normal in size. There is a focal area of photopenia which appears to be small involving the anterior wall close to the apex. This likely represents some reversible change. The ejection fraction at stress is 52%. Evaluation of wall motion demonstrates no focal wall motion abnormality. IMPRESSION: There is a small area of reversible change in the anterior wall close to the apex. Normal ejection fraction. ASSESSMENT: Low risk Based on imaging criteria from ACC/AHA 2002 Guideline Update for the Management of Patients With Chronic Stable Angina Table 23. Noninvasive Risk Stratification. Reference. MTDD
[2017-12-12 16:29] VITALS: BP 152/87
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
== END 2017-12-12 17:48 | disposition home or self-care (01) | DRG 199 ==
LOC: ED 13:53 → MEDTELE 16:45
PROVIDERS: ADMIT Internal Medicine; ATTEND Internal Medicine
DX: I11.9 Hypertensive heart disease without heart failure (principal); I67.1 Cerebral aneurysm, nonruptured; I25.118 Atherosclerotic heart disease of native coronary artery with other forms of angina pectoris; F20.9 Schizophrenia, unspecified; F31.9 Bipolar disorder, unspecified; F32.9 Major depressive disorder, single episode, unspecified; F17.210 Nicotine dependence, cigarettes, uncomplicated; F12.10 Cannabis abuse, uncomplicated; Z86.73 Personal history of transient ischemic attack (TIA), and cerebral infarction without residual deficits; Z95.1 Presence of aortocoronary bypass graft; Z86.711 Personal history of pulmonary embolism; Z81.8 Family history of other mental and behavioral disorders; Z79.01 Long term (current) use of anticoagulants
CPT/HCPCS: 36415; 71045; 78452; 78582; 80053; 80061; 80307; 83605; 84443; 84484; 85025; 85610; 85730; 90686; 93005; 93017; 93306; 99284; A9270-GY; A9502; A9540; A9558; J0280; J2060; J2270; J2405; J2785; J3490

== ENCOUNTER 2020-01-01 08:53 | Inpatient (IN) | payer BC ==
--- NOTE | 2020-01-01 09:11 | ED ---
HPI Chest Pain - HPI Summary HPI Summary: The patient is a 54 year-old male arriving by ambulance to [facility] with a chief complaint of sudden onset chest pain beginning around 0800 this morning. He reports that he was sleeping when the pain woke him up an hour ago. The pain radiates into the back, jaw, and upper extremities, and he describes it as a pressure, someone sitting on my chest, the hospital is on top of me. The pain is currently rated 9/10 in severity. He endorses diaphoresis and denies any abdominal pain. In the ambulance, he was given Aspirin, Zofran, two Nitroglycerins which helped, and two more Nitros which did not further alleviate his pain. He has a history of blood clots in his legs and chest, and he is currently on Xarelto. He denies any calf pain or swelling. He states that this pain is similar to when he had a ID about 8 years ago. Past medical history includes angina, pericarditis, CABG, coronary artery disease, hypercholesterolemia, hypertension, CVA, schizophrenia. Current smoker, no EtOH , marijuana and cocaine use (last was a week ago). He currently resides at the [facility] [place] for marijuana use. Medications reviewed. Allergies noted. - History of Current Complaint Chief Complaint: EDChestPainROMI Time Seen by Provider: 01/01/20 09:02 Hx Obtained From: Patient Onset/Duration: Started Minutes Ago, Still Present Time of Onset: 08:00 Timing: Constant Initial Severity: Severe Current Severity: Severe Pain Intensity: 9 Pain Scale Used: 0-10 Numeric Chest Pain Location: Diffuse Chest Pain Radiates: Yes Chest Pain Radiates To:: Back, Arm, Jaw Character: Pressure/Squeezing Aggravating Factor(s): Nothing Alleviating Factor(s): NTG 123 - 4 total in ambulance, first and second helped but third and fourth did not help, EMS Tx - ASA, Zofran Associated Signs and Symptoms: Positive: Chest Pain, Diaphoresis. Negative: Abdominal Pain, Edema, Other: - calf pain Related History: Similar Episode/Dx as: - ID 8 years ago - Additional Pertinent History Primary Care Physician: [id number] - Allergy/Home Medications Allergies/Adverse Reactions: Allergies Allergy/AdvReac Type Severity Reaction Status Date / Time Fish Containing Products Allergy Severe Anaphylatic Verified 01/01/20 11:48 Shock iodine Allergy Severe Anaphylatic Verified 01/01/20 11:48 Shock Home Medications: Home Medications Acetaminophen TAB* [Tylenol TAB*] 650 mg PO Q4H PRN MDD 4 tabs 01/01/20 [ History Confirmed 01/01/20] Multivitamin [Once Daily] 1 each PO DAILY 01/01/20 [History Confirmed 01/01/20] Nitroglycerin TAB 0.4 MG* 0.4 mg SL Q5M PRN 01/01/20 [History Confirmed 01/01/20 ] Rivaroxaban TAB(*) [Xarelto 10 mg (*)] 10 mg PO DAILY 01/01/20 [History Confirmed 01/01/20] Sertraline* [Zoloft*] 50 mg PO DAILY 01/01/20 [History Confirmed 01/01/20] busPIRone TAB* [Buspar TAB *] 15 mg PO TID 01/01/20 [History Confirmed 01/01/20] diPHENhydraMINE PO* [Benadryl PO 25 MG TAB*] 50 - 75 mg PO BEDTIME PRN 01/01/20 [History Confirmed 01/01/20] dilTIAZem HCl [Diltiazem 12Hr ER] 120 mg PO DAILY 01/01/20 [History Confirmed ] fluPHENAZine HCL TAB* [Prolixin TAB*] 5 mg PO Q6H 01/01/20 [History Confirmed ] hydrOXYzine HCL TAB* [Atarax 25 MG TAB*] 25 mg PO Q4HR PRN 01/01/20 [History Confirmed 01/01/20] risperiDONE [Risperidone] 1 mg PO BID 01/01/20 [History Confirmed 01/01/20] PMH/Surg Hx/FS Hx/Imm Hx Endocrine/Hematology History: Denies: Hx Blood Transfusions, Hx Bone Marrow Disease, Hx Systemic Lupus Erythematosus, Hx Sickle Cell Disease, Other Endocrine/Hematological Disorders Cardiovascular History: Reports: Hx Angina, Hx Coronary Artery Disease, Hx Deep Vein Thrombosis, Hx Hypercholesterolemia, Hx Hypertension, Hx Myocardial Infarction - unclear history, Other Cardiovascular Problems/Disorders - possible valve issue, pericarditis Denies: Hx Valvular Heart Disease Respiratory History: Reports: Hx Pulmonary Embolism Denies: Hx Asthma, Hx Chronic Bronchitis, Hx Chronic Obstructive Pulmonary Disease (COPD), Hx Seasonal Allergies, Hx Sleep Apnea GI History: Denies: Hx Crohn's Disease, Hx Diverticulosis, Hx Gastroesophageal Reflux Disease, Hx Hiatal Hernia, Hx Jaundice, Hx Ulcer, Other GI Disorders History: Denies: Hx Chronic Renal Failure, Hx Kidney Infection Musculoskeletal History: Denies: Hx Arthritis, Hx Congenital Bone Abnormalities, Hx Fibromyalgia, Hx Scoliosis, Other Musculoskeletal History Sensory History: Denies: Hx Cataracts, Hx Contacts or Glasses, Hx Vision Problem, Hx Hearing Aid, Hx Hearing Problem, Other Sensory Impairments Opthamlomology History: Denies: Hx Cataracts, Hx Contacts or Glasses, Hx Vision Problem, Other Sensory Impairments Neurological History: Reports: Hx CVA, Hx Headaches Comment Only: Hx Seizures - Unknown. No DX.Pt stated he had one episode of seizure Psychiatric History: Reports: Hx Schizophrenia - Surgical History Surgical History: Yes Surgery Procedure, Year, and Place: CABG 2006 [place]. Filter in legs and lungs Hx Anesthesia Reactions: No Infectious Disease History: No Infectious Disease History: Denies: Hx Clostridium Difficile, Hx Hepatitis, Hx of Known/Suspected MRSA, Hx Shingles, Hx Tuberculosis, Hx Known/Suspected VRE, Traveled Outside the [place] in Last 30 Days - Family History Known Family History: Positive: Other - lung CA and prostate CA - Social History Alcohol Use: None Hx Substance Use: Yes Substance Use Type: Reports: Cocaine, Marijuana Hx Tobacco Use: Yes Smoking Status (MU): Light Every Day Tobacco Smoker Type: Cigarettes Have You Smoked in the Last Year: Yes Review of Systems Positive: Skin Diaphoresis Positive: Chest Pain - pressure, radiating into the back, jaw, arms Negative: Abdominal Pain Negative: Myalgia - calf, Edema All Other Systems Reviewed And Are Negative: Yes Physical Exam - Summary Physical Exam Summary: Constitutional: Well-developed, Well-nourished, Alert. (-) Distressed Skin: Warm, Dry HENT: Normocephalic; Atraumatic Eyes: Conjunctiva normal Neck: Musculoskeletal ROM normal neck. (-) JVD, (-) Stridor, (-) Tracheal deviation Cardio: Rhythm regular, rate normal, Heart sounds normal; Intact distal pulses; The pedal pulses are 2+ and symmetric. Radial pulses are 2+ and symmetric. (-) Murmur Pulmonary/Chest wall: Effort normal. Old sternotomy scar noted. (-) Respiratory distress, (-) Wheezes, (-) Rales Abd: Soft, (-) tenderness, (-) Distension, (-) Guarding, (-) Rebound Musculoskeletal: (-) Edema Lymph: (-) Cervical adenopathy Neuro: Alert, Oriented x3 Psych: Mood and affect Normal Triage Information Reviewed: Yes Vital Signs On Initial Exam: Initial Vitals Temp Pulse Resp BP Pulse Ox 97.6 F 80 22 133/96 99 01/01/20 09:00 01/01/20 09:00 01/01/20 09:00 01/01/20 09:00 01/01/20 09:00 Vital Signs Reviewed: Yes Procedures - Sedation Patient Received Moderate/Deep Sedation with Procedure: No Diagnostics - Vital Signs Vital Signs Temp Pulse Resp BP Pulse Ox 01/01/20 09:00 97.6 F 80 22 133/96 99 - Laboratory Result Diagrams: 01/01/20 09:29 01/01/20 09:29 Lab Statement: Any lab studies that have been ordered have been reviewed, and results considered in the medical decision making process. - Radiology CXR Radiology Interpretation Completed By: Radiologist Summary of Radiographic Findings: Impression: No active cardiopulmonary disease. ED physician has reviewed this report. - EKG 0856 Cardiac Rate: NL - 82 BPM EKG Rhythm: Sinus Rhythm Summary of EKG Findings: EKG at 0856 reveals normal sinus rhythm at rate of 82 BPM, no ischemic changes. Dr. Watts has reviewed and interpreted this EKG. Chest Pain Course/Dx - Course Course Of Treatment: Patient is a 54 year-old male who has a history of ID, pericarditis, and CABG presenting with diffuse chest pain radiating into the back, arms, and jaw onset an hour ago with mild relief by EMS administration of Aspirin, Zofran, and four NTG. Cocaine last used a week ago although currently at [facility] for marijuana use. Physical exam is significant for an old sternotomy scar but is otherwise benign. Patient placed on degreasing solution reclaimer, IV access obtained. Patient administered fluids, Zofran, Nitroglycerin, and Morphine. Blood work obtained without acute abnormality except for alkaline phosphatase of 118. Negative troponin. EKG at 0856 reveals normal sinus rhythm at rate of 82 BPM, no ischemic changes. CXR is negative. I spoke with Dr. Harvey from the hospitalist services, who accepts the patient for admission. Patient agreeable with plan. - Diagnoses Provider Diagnoses: Chest pain - Provider Notifications Discussed Care Of Patient With: Carlos Harvey - hospitalist Time Discussed With Above Provider: 11:00 Instructed by Provider To: Other - I discussed the patients case with Dr. Harvey, who accepts the patient for admission. Discharge ED - Sign-Out/Discharge Documenting (check all that apply): Patient Departure - Patient accepted for admission by Dr. Harvey. - Discharge Plan Condition: Stable Disposition: ADMITTED TO [facility] - Billing Disposition and Condition Condition: STABLE Disposition: Admitted to [facility] - Attestation Statements Document Initiated by Balbir: Yes Documenting Scribe: Brianna Madison Provider For Whom Balbir is Documenting (Include Credential): Dr. Jason Watts DO Scribe Attestation: Brianna Pan scribed for Dr. Jason Watts DO on 01/01/20 at 1248. Scribe Documentation Reviewed: Yes Provider Attestation: The documentation as recorded by the Brianna keen accurately reflects the service I personally performed and the decisions made by me, Dr. Jason Watts DO Status of Scrcele Document: Viewed
[2020-01-01] MEDS ORDERED: NS 0.9% 1000 ML** 1,000 ML IV ONE ×2 (09:13→11:33)
[2020-01-01] MEDS ORDERED: Nitroglycerin TAB 0.4 MG* 0.4 MG TAB SL ONE (09:13)
[2020-01-01] MEDS ORDERED: Ondansetron INJ* 2 MG/ML VIAL IV ONE (09:20)
[2020-01-01] MEDS ORDERED: Morphine 4 MG/ML VIAL (1 ml) 4 MG/ML VIAL IV ONE (09:20)
[2020-01-01 09:40] LABS: ABS Eosinophils 0.2 10^3/ul (0-0.6); ABS Lymphocytes 2.2 10^3/ul (1.0-4.8); ABS Monocytes 0.8 10^3/ul (0-0.8); ABS Neutrophils 6.6 10^3/ul (1.5-7.7); Eosinophil % 2.4 %; Hematocrit 40 % (42-52); Hemoglobin 13.6 g/dL (14.0-18.0); Lymphocyte % 22.4 %; Mean Corpuscular HGB Conc 34 g/dL (31-36); Mean Corpuscular Hemoglobin 32 pg (27-31); Mean Corpuscular Volume 93 fL (80-94); Mean Platelet Volume 8.2 fL (7.4-10.4); Platelet Count 217 10^3/uL (150-450); Red Blood Count 4.31 10^6 /uL (4.18-5.48); Red Cell Distribution Width 14 % (10-15); White Blood Count 9.8 10^3/uL (3.5-10.8)
[2020-01-01 09:56] LABS: Albumin/Globulin Ratio 1.6 (1-3); BUN/Creatinine Ratio 14.1 (8-20); Calcium 8.8 mg/dL (8.6-10.3); EGFR African American 96.1 (>60); EGFR Non-African American 79.4 (>60); Globulin 2.5 g/dL (2-4); Potassium 4.1 mmol/L (3.5-5.0); Total Bilirubin 0.4 mg/dL (0.2-1.0); Total Protein 6.5 g/dL (6.4-8.9)
[2020-01-01] MEDS ORDERED: Acetaminophen TAB* 325 MG PO PRN (11:42)
[2020-01-01] MEDS ORDERED: Ondansetron INJ* 2 MG/ML VIAL IV PRN (11:42)
[2020-01-01] MEDS ORDERED: Senna TAB 8.6 mg* TAB PO PRN (11:42)
[2020-01-01] MEDS ORDERED: Al Hydrox/Mg Hydrox/Simet LIQ* 30 ML UDC PO PRN (11:42)
[2020-01-01] MEDS: Nitroglycerin TAB 0.4 MG* 0.4 MG TAB SL PRN (11:58)
[2020-01-01] MEDS ORDERED: hydrOXYzine HCL TAB* 25 MG PO PRN (12:21)
[2020-01-01] MEDS ORDERED: Nicotine* 2MG (FRUIT FLAVOR) GUM PO PRN (12:31)
--- NOTE | 2020-01-01 13:12 | ECHO ---
*[facility]* [place] [address] Fax #: [phone] Transthoracic Echocardiogram Patient: Malena Valentin : 1965 Study Date: 01/01/2020 Age: 54 Gender: M HR: 74 bpm Height: 69 in /175.3 cm BSA: 2.31 m^2 Weight: 259.5 lb /117.9 kg BMI: 38.4 kg/m^2 *Sand Cutter Operator: * Tessie Dobbs [facility] *Referring Physician: * O'Janet Bonilla *Reading Physician: * Barry Harrell MD Indications: SOB. History: Coronary artery disease. Cerebrovascular accident. Risk factors: Current tobacco use. Dyslipidemia. Brain aneurysm. Labs, prior tests, procedures, and surgery: Coronary artery bypass grafting. Conclusions Summary: - Left ventricle: Systolic function is normal. The estimated ejection fraction is 60-65%. Wall motion is normal; there are no regional wall motion abnormalities. - Right ventricle: Systolic function is normal. - Mitral valve: There is trace regurgitation. - Aortic valve: There is no evidence of stenosis. There is mild to moderate regurgitation. - Pulmonic valve: There is trace regurgitation. - Pericardium, extracardiac: There is no significant pericardial effusion. - Pulmonary arteries: Systolic pressure can not be accurately estimated. - Compared to study of 12/12/17, there is no significant change. Study data: Transthoracic echocardiogram. Procedure: Transthoracic echocardiography was performed. Image quality was fair. Complete 2D, spectral Doppler, and color flow Doppler. Location: Emergency department. Patient room number: ED-08. Rhythm: Normal sinus rhythm. Findings Left ventricle: The cavity size is normal. Wall thickness is mildly increased. Systolic function is normal. The estimated ejection fraction is 60-65%. Wall motion is normal; there are no regional wall motion abnormalities. There is no consistent Doppler evidence of clinically significant diastolic dysfunction. Right ventricle: The cavity size is moderately dilated. Systolic function is normal. Ventricular septum: Postoperative hypokinesis of the interventricular septum is observed. Left atrium: The atrium is mildly dilated. Right atrium: The atrium is mildly dilated. Mitral valve: The leaflets are mildly thickened. There is no evidence of stenosis. There is trace regurgitation. Aortic valve: The valve is trileaflet. The leaflets are mildly thickened. There is no evidence of stenosis. There is mild to moderate regurgitation. Tricuspid valve: The leaflets are normal thickness. There is no evidence of stenosis. There is trace regurgitation. Pulmonic valve: The leaflets are normal thickness. There is no evidence of stenosis. There is trace regurgitation. Aorta: Aortic root: The aortic root is appears normal. Ascending aorta: The ascending aorta is appears normal. Aortic arch: The aortic arch is appears normal. Pericardium: A prominent pericardial fat pad is present. There is no significant pericardial effusion. Pulmonary arteries: The main pulmonary artery is normal-sized. Systolic pressure can not be accurately estimated. Systemic veins: Inferior vena cava: The vessel is normal in size. There is (>= 50%) respiratory change in the IVC dimension. Measurements Left ventricle Value Ref Aortic valve Value Ref LAYNE, LAX 4.8 cm 4.2 - 5.8 Swapna diam, ED 2.4 cm ---- ESD, LAX 2.8 cm 2.5 - 4.0 Peak v, S 1.31 m/sec ---- FS, LAX 42 % 25 - 43 VTI, S 27.5 cm ---- PW, ED, LAX (H) 1.2 cm 0.6 - 1.0 Mean grad, S 3.0 mm Hg ---- FS 42 % 25 - 43 Peak grad, S 7.0 mm Hg ---- PW, ED (H) 1.2 cm 0.6 - 1.0 LVOT/AV, VTI ratio 0.87 ---- E', lat swapna, TDI 10.3 cm/sec >=10.0 AR peak v 5.02 m/sec -- -- E/e', lat swapna, 6 AR PHT 559 ms ---- TDI AR peak grad 101 mm Hg ---- E', med swapna, TDI (L) 6.1 cm/sec >=7.0 E/e', med swapna, 11 Mitral valve Value Ref TDI Peak E 0.65 m/sec ---- E', avg, TDI 8.2 cm/sec Peak A 0.44 m/sec ---- E/e', avg, TDI 8 <=14 Decel time 180 ms -- -- Peak E/A ratio 1.5 ---- LVOT Value Ref Peak rojelio, S 1.14 m/sec Pulmonic valve Value Ref VTI, S 24.0 cm Peak v, S 1 m/sec ---- Peak grad, S 5 mm Hg Peak grad, S 4.0 mm Hg ---- Mean grad, S 3 mm Hg Aortic root Value Ref Ventricular septum Value Ref Root diam 3.1 cm <4.4 IVS, ED (H) 1.1 cm 0.6 - 1.0 Ascending aorta Value Ref Right ventricle Value Ref AAo AP diam, S 2.9 cm ---- LAYNE, LAX 3.0 cm LAYNE minor ax, A4C (H) 4.6 cm 1.9 - 3.5 Aortic arch Value Ref mid Arch diam 2.0 cm ---- Left atrium Value Ref Decending aorta Value Ref AP dim, ES 3.30 cm 3.00 - Kiran peak rojelio 1.31 m/sec ---- 4.00 ML dim, A4C 5.0 cm Inferior vena cava Value Ref SI dim, A4C 5.9 cm Diam 1.6 cm ---- Vol/bsa, ES, 1-p (H) 41 ml/m^2 12 - 37 A4C Vol/bsa, ES, A/L (H) 38 ml/m^2 16 - 34 Right atrium Value Ref SI dim, ES (H) 5.7 cm 3.4 - 5.3 ML dim, ES, A4C 3.4 cm 2.6 - 4.4 Estimated RAP 3 mm Hg Legend: (L) and (H) pato values outside specified reference range. Prepared and electronically signed by Barry Harrlel MD 01/01/2020 13:11
--- NOTE | 2020-01-01 13:58 | HP ---
HISTORY AND PHYSICAL: DATE OF ADMISSION: 01/01/20 ATTENDING PHYSICIAN WHILE IN THE HOSPITAL: Dr. Carlos Harvey * (dictated by MARY Nunez). PRIMARY CARE PROVIDER: None (currently being taken care of by Mireille Schneider NP at [facility] [place]). CHIEF COMPLAINT: Chest pain. HISTORY OF PRESENT ILLNESS: Malena Valentin is a 54-year-old black male with past medical history significant for coronary artery disease, status post CABG; history of DVT/PE, on Xarelto; history of CVA with minimal left hemiparesis residually; schizoaffective disorder, who presents to the emergency department today due to severe chest pain that woke him from sleep. The patient arrived to [facility] yesterday where he is reportedly voluntary client. The patient awoke suddenly at 7:30 this morning with chest pain that "feels like someone is sitting on my chest." He is having shortness of breath at rest at this time as well as nausea and he did vomit with 2 episodes. The patient received 2 doses of nitroglycerin prior to arriving to the emergency department and the second 2 doses of nitroglycerin did not help his chest pain. He tells me he has been having dyspnea on exertion for the last 2 to 3 weeks as well as orthopnea for the last month. He does note some swelling in his legs for the last several weeks; however, this only occurs at the end of the day then resolves by the morning. He denies abdominal pain, fever, chills, visual changes, changes in bowel or bladder habits. He has headache at this time, but he noticed that it started after nitroglycerin was administrated. Of note, the patient had a recent hospitalization at a psychiatric facility at [facility] in [place] after being transferred from [facility] due to suicidal ideation and depression. The patient did complain of chest pain on the date of transfer between [facility] and [facility], and the patient did not have a complete cardiac workup. He did have EKGs and troponins that were of no suspicion for cardiac etiology and his chest pain did not resolve, though I do not see any echocardiogram or stress test in [facility]. When the patient's chest pain onset, he was feeling diaphoretic. PAST MEDICAL HISTORY: 1. Coronary artery disease, status post CABG. 2. DVT/PE in approximately 2009, on Xarelto. 3. CVA due to a brain aneurysm with residual left hemiparesis approximately 3 years ago. 4. Anxiety. 5. Schizoaffective disorder. 6. Depression. 7. Childhood asthma, which is resolved. PAST SURGICAL HISTORY: 1. CABG in [place] approximately 2008 or 2009. 2. Partial lobectomy in the left lung approximately 10 years ago in [place] for unclear reasons possibly related to infection. 3. IVC filter removed due to complications. HOME MEDICATIONS: 1. Fluphenazine 5 mg p.o. q.6 hours. 2. Tylenol 650 mg p.o. q.4 hours p.r.n. pain. 3. Nitroglycerin 0.4 mg sublingual q.5 minutes p.r.n. angina. 4. Diltiazem 120 mg p.o. daily. 5. Benadryl 70 to 75 mg p.o. at bedtime p.r.n. insomnia. 6. Hydroxyzine 25 mg p.o. q.4 hours p.r.n. anxiety. 7. BuSpar 15 mg p.o. t.i.d. 8. Multivitamin 1 tab p.o. daily. 9. Zoloft 50 mg p.o. daily. 10. Xarelto 10 mg p.o. daily. 11. Metoprolol tartrate 25 mg p.o. b.i.d. 12. Risperdal 1 mg p.o. b.i.d. 13. Trazodone 150 mg p.o. at bedtime. ALLERGIES: 1. Anaphylactic shock to IODINE. 2. Anaphylactic shock to FISH. FAMILY HISTORY: Father at age 71 due to prostate cancer, though he did have a history of coronary artery disease. The patient's mother is living at age 68 and she has a history of coronary artery disease and type 2 diabetes. SOCIAL HISTORY: The patient typically lives alone in [place]. He is currently at [facility] for drug and alcohol rehab. When he is normally at home, he is disabled, he does not work. He uses a cane to ambulate at times. He was previously incarcerated for 10 years which is when he had these multiple medical problems that he was treated for in [place]. He has 7 children. He has never been . He currently smokes approximately 5 cigarettes per day. He has been smoking for approximately 25 years at a half a pack per day. Denies alcohol use. He uses marijuana almost daily and at times "sprinkles cocaine in the marijuana." The patient's son, Jose Valentin is his surrogate medical decision maker should he need one. His phone number is [phone]. REVIEW OF SYSTEMS: An 11-point review of systems was completed and all pertinent positives and negatives are above in the HPI. All other systems are negative. PHYSICAL EXAMINATION GENERAL: Well-developed, well-nourished black male, who appears stated age, lying in hospital bed, appearing comfortable, in no acute distress. VITAL SIGNS: Temperature 97.6 degrees Fahrenheit, heart rate 80, respiratory rate 22, oxygen saturation 99% on 2 L, blood pressure 133/96. HEENT: Eyes: PERRL. Sclerae anicteric. ENT: Mucous membranes moist. LUNGS: Clear to auscultation throughout. CARDIO: Regular rate and rhythm without murmurs, rubs, or gallops. ABDOMEN: Normoactive bowel sounds x4 quadrants. The abdomen is soft, nontender , nondistended. EXTREMITIES: No clubbing, cyanosis, or edema. NEURO: The patient is alert and oriented x3. Strength is 4/5 with left hand and assistant foreman strength and left-sided dorsiflexion and plantarflexion. Strength is 5 /5 on the right side, which is the patient's baseline. SKIN: Warm, dry, and intact. DIAGNOSTIC STUDIES/LAB DATA: White blood cell count 9.8, hemoglobin 13.6, hematocrit 40, platelet count 217. Sodium 138, potassium 4.1, chloride 108, carbon dioxide 25, anion gap 5, BUN 14, creatinine 0.99, glucose 96, lactic acid 0.8, calcium 8.8. Total bili 0.4, AST 17, ALT 24, alk phos 118. Troponin 0.00. BNP 24. Chest x-ray, impression: No active cardiopulmonary disease. EKG, normal sinus rhythm at 82 beats per minute. Normal axis. Isolated T-wave inversion in V1. No ST depressions or elevations. ASSESSMENT AND PLAN: Malena Valentin is a 54-year-old black male with past medical history significant for coronary artery disease, status post coronary artery bypass grafting; cerebrovascular accident; DVT/PE, on Xarelto; schizoaffective disorder; and cocaine and marijuana use, who presents to the emergency department due to chest pain. The patient will be admitted to OB for: 1. Chest pain. Given the patient's significant cardiac history, he is going to be admitted for monitoring on telemetry. We will continue his troponins. His initial troponin is negative and his initial EKG is without any ischemic changes. We will continue to do additional EKGs with additional troponins. I will continue his home medication of diltiazem and metoprolol. It does not appear the patient takes baby aspirin. He did receive a full dose of aspirin prior to arriving to the emergency department per nursing documentation and I will start a baby aspirin for tomorrow 81 mg daily. It does not appear that he takes a statin at home either. I will check lipid panel for tomorrow and a hemoglobin A1c. His chest pain was initially relieved with nitroglycerin and I will continue p.r.n. nitroglycerin to determine if perhaps a nitroglycerin patch could be of benefit to him. I have ordered p.r.n. morphine for severe chest pain as well. Given his associated dyspnea on exertion and his orthopnea that he has been telling me about, I am concerned that perhaps he had a prior vasospasm due to his cocaine use that may have been causing heart failure and I will order a stat transthoracic echocardiogram. I have ordered an exercise nuclear stress test for tomorrow. I have low suspicion for pulmonary embolism at this time, though it does remain on the differential given the patient's history, but he tells me that he has been taking his Xarelto daily. Additionally , he is not tachycardic and he has no clinical signs of DVT. He has anaphylactic shock to contrast and he would need a V/Q scan to effectively rule this out and I will hold off at this time because if the patient were to receive V/Q scan today, it would delay nuclear stress test. 2. History of cerebrovascular accident secondary to brain aneurysm. It does not appear that the patient takes any antihypertensive medication other than metoprolol and I will continue this. 3. History of DVT/PE. I will continue the patient's Xarelto. 4. Schizoaffective disorder. I will continue the patient's Risperdal, fluphenazine. 5. History of anxiety and depression. I will continue the patient's BuSpar, p.r.n. Atarax, and trazodone for sleep and Zoloft. 6. FEN: The patient may have a heart healthy diet, decaf okay. Electrolytes are with no need for repletion and I see no need for IV fluids at this time. 7. DVT prophylaxis: The patient has a DVT risk score of 4. He will be taking his home Xarelto. 8. Code status: The patient is a full code. TIME SPENT: Approximately 55 minutes was spent on this admission, approximately half of this time was spent at bedside evaluating the patient and discussing the plan of care. This case has been reviewed with my attending, Dr. Carlos Harvey, and he agrees with this plan of care. MARY NUNEZ [id number]/CPS #: [id number]
[2020-01-01] MEDS: fluPHENAZine HCL TAB* 5 MG PO SCH ×2 (14:51→20:03)
[2020-01-01] MEDS: busPIRone TAB* 15 MG PO SCH ×2 (14:51→20:02)
[2020-01-01] MEDS: risperiDONE TAB* 1 MG PO SCH (20:03)
[2020-01-01] MEDS: traZODone TAB* 50 MG TAB PO SCH (20:03)
[2020-01-01] MEDS: Metoprolol Tartrate TAB* 25 MG PO SCH (20:03)
[2020-01-02] MEDS: fluPHENAZine HCL TAB* 5 MG PO SCH ×4 (00:25→21:09)
[2020-01-02 04:55] LABS: Urine Benzodiazepine Screen None Detected (None Detect); Urine Buprenorphine Screen None Detected (None Detect); Urine Hydrocodone Screen None Detected (None Detect); Urine Opiates Screen None Detected (None Detect)
[2020-01-02 07:18] LABS: BUN/Creatinine Ratio 10.7 (8-20); Calcium 8.8 mg/dL (8.6-10.3); EGFR African American 83.3 (>60); EGFR Non-African American 68.8 (>60); HDL Cholesterol 46.3 mg/dL; Potassium 4.6 mmol/L (3.5-5.0)
[2020-01-02 07:48] LABS: TSH (Thyroid Stimulating Horm) 0.92 mcIU/mL (0.34-5.60)
[2020-01-02] MEDS ORDERED: Aspirin 81 mg CHEW TAB* 81 MG TAB.CHEW PO SCH (09:00)
[2020-01-02] MEDS: Nitroglycerin TAB 0.4 MG* 0.4 MG TAB SL PRN ×2 (11:32→11:39)
[2020-01-02] MEDS: Multivitamins/Minerals TAB PO SCH (12:29)
[2020-01-02] MEDS: Rivaroxaban TAB(*) 10 MG PO SCH (12:30)
[2020-01-02] MEDS: Sertraline* 50 MG TAB PO SCH (12:30)
[2020-01-02] MEDS: Morphine INJ* 2 MG/ML 1 ML SYRINGE (TWO MG - NEW SYRINGE VERSION) IV PRN (12:30)
[2020-01-02] MEDS: busPIRone TAB* 15 MG PO SCH ×3 (12:30→21:09)
[2020-01-02] MEDS: Diltiazem CD CAP* 120 MG PO SCH (12:30)
[2020-01-02] MEDS: risperiDONE TAB* 1 MG PO SCH ×2 (12:30→21:09)
[2020-01-02] MEDS: Metoprolol Tartrate TAB* 25 MG PO SCH ×2 (12:30→21:09)
[2020-01-02 15:18] LABS: C Reactive Protein 3.21 mg/L (<8.01)
--- NOTE | 2020-01-02 15:18 | PN ---
Subjective Date of Service: 01/02/20 Interval History: Received call from Cardiology that Stress Test was not completed as patient was having active chest pain. RN called reporting patient has been having chest pain all morning, therefore, nitro given with no relief. RN reports patient requesting Morphine. Repeat EKG and DDimer ordered. Patient assessed by this medical writer and patient is lying in bed. Reports pain is "8 " out of 10 in chest. Reports it feels like the whole hospital is sitting on his chest. Reports pain started yesterday morning upon waking and lasted until given Morphine in ED. Reports pain returned this morning. Denies associated symptoms. Denies aggrivating/alleviating factors. No sob, nausea, vomiting, abd pain, diarrhea, weakness, dizziness. Objective Active Medications: Acetaminophen (Tylenol Tab*) 650 mg PO Q4H PRN PRN Reason: MILD PAIN or TEMP > 100.4 Last Admin: 01/01/20 17:57 Dose: 650 mg Al Hydrox/Mg Hydrox/Simethicone (Maalox Plus*) 30 ml PO Q6H PRN PRN Reason: INDIGESTION Aspirin (Aspirin 81 Mg Chew Tab*) 81 mg PO DAILY [facility] Last Admin: 01/02/20 12:30 Dose: 81 mg Buspirone HCl (Buspar Tab *) 15 mg PO TID [facility] Last Admin: 01/02/20 14:05 Dose: Not Given Diltiazem HCl (Cardizem Cd Cap*) 120 mg PO DAILY [facility] Last Admin: 01/02/20 12:30 Dose: 120 mg Fluphenazine HCl (Prolixin Tab*) 5 mg PO Q6H [facility] Last Admin: 01/02/20 12:30 Dose: 5 mg Hydroxyzine HCl (Atarax Tab*) 25 mg PO Q4HR PRN PRN Reason: ANXIETY Last Admin: 01/01/20 17:57 Dose: 25 mg Metoprolol Tartrate (Lopressor Tab*) 25 mg PO BID [facility] Last Admin: 01/02/20 12:30 Dose: 25 mg Morphine Sulfate (Morphine Inj (Syringe))*) 2 mg IV Q4H PRN PRN Reason: PAIN - SEVERE Last Admin: 01/02/20 12:30 Dose: 2 mg Multivitamins/Minerals (Theragran/Minerals Tab*) 1 tab PO DAILY [facility] Last Admin: 01/02/20 12:29 Dose: 1 tab Nicotine Polacrilex (Nicotine Gum*) 2 mg PO Q2H PRN PRN Reason: CRAVING Nitroglycerin (Nitroglycerin Tab 0.4 Mg*) 0.4 mg SL Q5M PRN PRN Reason: ANGINA Last Admin: 01/02/20 11:39 Dose: 0.4 mg Ondansetron HCl (Zofran Inj*) 4 mg IV Q4H PRN PRN Reason: NAUSEA/VOMITING Risperidone (Risperdal*) 1 mg PO BID [facility] Last Admin: 01/02/20 12:30 Dose: 1 mg Rivaroxaban (Xarelto(*)) 10 mg PO DAILY [facility] Last Admin: 01/02/20 12:30 Dose: 10 mg Senna (Senokot 8.6 Mg Tab*) 1 tab PO BID PRN PRN Reason: CONSTIPATION Sertraline HCl (Zoloft*) 50 mg PO DAILY [facility] Last Admin: 01/02/20 12:30 Dose: 50 mg Trazodone HCl (Desyrel Tab*) 150 mg PO BEDTIME [facility] Last Admin: 01/01/20 20:03 Dose: 150 mg Vital Signs - 8 hr 01/02/20 01/02/20 01/02/20 07:39 11:38 12:26 Temperature 97.4 F 97.3 F 97.4 F Pulse Rate 66 58 61 Respiratory 20 22 18 Rate Blood Pressure 136/83 150/75 124/83 (mmHg) O2 Sat by Pulse 99 100 100 Oximetry 01/02/20 01/02/20 12:30 14:21 Temperature Pulse Rate Respiratory 18 18 Rate Blood Pressure (mmHg) O2 Sat by Pulse Oximetry Oxygen Devices in Use Now: None Appearance: Comfortable, NAD Eyes: No Scleral Icterus Ears/Nose/Mouth/Throat: Clear Oropharnyx, Mucous Membranes Moist Neck: NL Appearance and Movements; NL JVP Respiratory: Symmetrical Chest Expansion and Respiratory Effort, Clear to Auscultation Cardiovascular: NL Sounds; No Murmurs; No JVD, RRR, No Edema Abdominal: NL Sounds; No Tenderness; No Distention Lymphatic: No Cervical Adenopathy Extremities: No Edema Skin: No Rash or Ulcers Neurological: Alert and Oriented x 3, NL Muscle Strength and Tone Nutrition: Taking PO's Result Diagrams: 01/01/20 09:29 01/02/20 05:53 Additional Lab and Data: Laboratory Results - last 24 hr 01/01/20 01/02/20 01/02/20 15:29 03:14 05:53 D-Dimer, Quantitative Sodium 138 Potassium 4.6 Chloride 109 Carbon Dioxide 24 Anion Gap 5 BUN 12 Creatinine 1.12 Est GFR ( Amer) 83.3 Est GFR (Non-Af Amer) 68.8 BUN/Creatinine Ratio 10.7 Glucose 89 Hemoglobin A1c Calcium 8.8 Troponin I 0.01 Triglycerides 91 Cholesterol 143 LDL Cholesterol 79 HDL Cholesterol 46.3 TSH 0.92 Urine Opiates Screen None detected Buprenorphine Screen None detected Hydrocodone Screen None detected Ur Oxycodone Screen None detected Urine Methadone Screen None detected U Fentanyl Presumptive None detected Ur Barbiturates Screen None detected Ur Phencyclidine Immuno None detected Ur Amphetamines Screen None detected U Benzodiazepines Scrn None detected Urine Cocaine Screen None detected U Cannabinoids Screen Presumptive positive A 01/02/20 01/02/20 05:53 12:14 D-Dimer, Quantitative < 200 Sodium Potassium Chloride Carbon Dioxide Anion Gap BUN Creatinine Est GFR ( Amer) Est GFR (Non-Af Amer) BUN/Creatinine Ratio Glucose Hemoglobin A1c 5.6 Calcium Troponin I Triglycerides Cholesterol LDL Cholesterol HDL Cholesterol TSH Urine Opiates Screen Buprenorphine Screen Hydrocodone Screen Ur Oxycodone Screen Urine Methadone Screen U Fentanyl Presumptive Ur Barbiturates Screen Ur Phencyclidine Immuno Ur Amphetamines Screen U Benzodiazepines Scrn Urine Cocaine Screen U Cannabinoids Screen Microbiology and Other Data: . Assess/Plan/Problems-Billing Assessment: 54 yr old male with pmh of cad and s/p cabg, dvt/pe, cva, anxiety, schizoaffective, depression; who presented to ed with chest pain. - Patient Problems (1) Chest pain Comment: - Continues to have chest pain today. Only relief last night after morphine - Negative trops - No changes in EKGs - DDimer negative - Echo: EF 60% to 65%. No acute findings and unchanged from 11/2018 - Requested cardiology consult given hx and unremarkable work up. (2) Schizophrenia Comment: - Cont Risperadol and Prolixin (3) HTN (hypertension) Comment: - Cont CCb and BB (4) Anxiety Comment: - Cont Buspar, Zoloft, Atarax, and Trazadone (5) DVT prophylaxis Comment: - Cont home Xarelto Attending: Carlos Harvey
--- NOTE | 2020-01-02 19:41 | CONS ---
CARDIOLOGY CONSULTATION: DATE OF CONSULT: 01/02/20 REASON FOR EVALUATION: Chest pain. HISTORY OF PRESENT ILLNESS: This is a very pleasant 54-year-old gentleman with history of coronary artery disease, substance abuse, hypertension, tobacco use, who is status post coronary artery bypass grafting in 2008. He reports that for the last month and a half, he has been getting some chest discomfort walking a block, which resolves with resting or taking a nitro. Prior to that, he used to be able to walk a mile. He said yesterday he awoke with pressure on his chest and vomited twice. He was sweaty and short of breath. There was a slight squeezing sensation, which did not change with position or inspiration. Because of those symptoms, he was brought to the hospital. He initially got nitro with some relief, but then it came back and nitro did not help, then he got morphine with some relief. Today, he was supposed to get a stress test, but was having chest pain. He got nitro without relief, but morphine with relief. He said his total pain yesterday lasted an hour and a half, but his enzymes have been negative. His initial EKG from 01/01/20 revealed sinus rhythm with precordial ST elevations diffusely and possible [place] elevation in aVR. Subsequent EKG at noon yesterday again revealed subtle anterior ST elevations. EKG from this morning revealed mild ST elevations inferiorly as well and EKG from noon today revealed more prominent inferior-anterior ST elevations. An EKG from 3 o'clock revealed improvement in the ST elevations with T- wave flattening in I, aVL, and V4 through V6. He says the pain is somewhat worse when he lies flat. Currently, he is pain- free. He denies fevers, chills, sweats, cough, hematemesis, hematochezia, diarrhea, or dysuria. PAST MEDICAL HISTORY: Includes coronary artery disease, status post coronary artery bypass grafting at [facility] in approximately 2008; DVT/PE in approximately 2009, on Xarelto; he said he had an episode of pericarditis postop in 2008; anxiety; depression; childhood asthma. He has schizoaffective disorder and bipolar, which is controlled on his medicines. 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 He said he last used marijuana 2 weeks ago and he sprinkled it with cocaine at that time. He has a history of cerebro-vascular accident secondary to brain aneurysm and was limited to wheelchair for a year, but has since recovered. PAST SURGICAL HISTORY: Includes coronary artery bypass grafting in [place] in 2008 or so, lobectomy of the left lung approximately 10 years ago, and an IVC filter removed due to complications. MEDICATIONS AT HOME: Include: 1. Fluphenazine 5 mg q.6. 2. Nitroglycerin sublingual. 3. Diltiazem 120 daily. 4. Benadryl 75 mg at bedtime p.r.n. insomnia. 5. Hydroxyzine 25 mg p.r.n. anxiety. 6. BuSpar 15 mg t.i.d. 7. Multivitamin. 8. Zoloft 50 mg a day. 9. Xarelto 10 mg a day. 10. Metoprolol tartrate 25 mg b.i.d. 11. Risperdal 1 mg b.i.d. 12. Trazodone 150 mg at bedtime. ALLERGIES: Include anaphylactic shock to IODINE and to FISH. FAMILY HISTORY: Includes father at 71 due to prostate cancer, but had coronary artery disease; mother at 68 with coronary artery disease, type 2 diabetes. SOCIAL HISTORY: He typically lives in [place]. He is a disabled cook. He has never been , but has 7 children. He smokes 5 cigarettes a day as per the patient. He denies alcohol use. He reports that his surrogate medical decision maker is his son, Jose January, . REVIEW OF SYSTEMS: Review of systems x10 was negative except as above. PHYSICAL EXAM: He is a well-developed, obese gentleman, in no apparent distress. Blood pressure 124/83; O2 sat is 100% on 2 L nasal cannula, it was 99 % on room air earlier today; temperature 97.4. Atraumatic, normocephalic. Extraocular muscles intact. Sclerae anicteric. No significant JVD. Carotids 2 + without bruits. No cervical adenopathy. No thyromegaly. Cardiac Exam: S1, S2. No murmurs, gallops, or rubs. Chest was clear. No CVAT. Abdomen: Obese. Bowel sounds present. No hepatosplenomegaly. Femoral pulses intact with a right femoral bruit. Distal pulses intact. No edema. Negative Homans sign. Motor strength 5/5 bilaterally. DIAGNOSTIC STUDIES/LAB DATA: Labs include CBC with a mild anemia, hemoglobin of 13.6, hematocrit of 40, platelets of 217. Electrolytes: Sodium 138, potassium of 4.6, BUN of 12, creatinine of 1.12. Troponin of 0.01, 0.01 yesterday; CRP 3.21; BNP 24. Cholesterol 143, LDL is 79. TSH 0.92. His echo from yesterday revealed normal EF of 60% to 65%, trace MR, mild-to- moderate AI, similar to November of 2017. Chest x-ray: No active cardiopulmonary disease. IMPRESSION AND PLAN: My impression is that Mr. Valentin has chest pain of unclear etiology with negative troponins. He does have EKG changes, which raised the possibility of pericarditis. He also has exertional symptoms raising the possibility of recurrence of his coronary artery disease. For the time being, I would recommend the followin. We would try high-dose aspirin to try to control his symptoms. We would use long-acting diltiazem as you are doing 120 mg a day. 2. We would switch to long-acting metoprolol 25 mg of succinate b.i.d. 3. I strongly advised him to discontinue tobacco use. 4. We would follow serial troponins and EKGs. 5. His sed rate and CRP were negative today, but I would repeat them tomorrow. 6. We would consider stress test tomorrow to evaluate for ischemia. 7. If indeed he has pericarditis, we would suggest refraining from vigorous exertion for at least 2 weeks until his symptoms resolve. 8. I advised him of the dangers of substance abuse and mandated him on getting treatment. Further recommendations will depend on his clinical course. [id number]/[facility] #: [id number] 01.03.20 addendum: patient improved on high dose aspirin. Will need to reassess treatment plan in light of the increased risk of bleeding on high dose aspirin and xarelto. await old records and stress test. [facility] 01.03.20 9;53 am. CORBNI
[2020-01-02] MEDS ORDERED: Aspirin TAB* 325 MG PO ONE (20:00)
[2020-01-02] MEDS: traZODone TAB* 50 MG TAB PO SCH (21:09)
[2020-01-03] MEDS: fluPHENAZine HCL TAB* 5 MG PO SCH ×4 (00:20→20:16)
[2020-01-03 08:12] LABS: BUN/Creatinine Ratio 11.7 (8-20); C Reactive Protein 2.48 mg/L (<8.01); Calcium 9.1 mg/dL (8.6-10.3); EGFR African American 84.2 (>60); EGFR Non-African American 69.6 (>60); Potassium 4.6 mmol/L (3.5-5.0)
[2020-01-03 09:50] LABS: Troponin I 0.01 ng/mL (<0.03)
[2020-01-03] MEDS ORDERED: Aspirin TAB* 325 MG PO ONE (10:00)
[2020-01-03 10:16] LABS: Erythrocyte Sed Rate 1 mm/Hr (0-19)
[2020-01-03 10:19] LABS: ABS Eosinophils 0.2 10^3/ul (0-0.6); ABS Lymphocytes 1.7 10^3/ul (1.0-4.8); ABS Monocytes 0.6 10^3/ul (0-0.8); ABS Neutrophils 4.1 10^3/ul (1.5-7.7); Hematocrit 45 % (42-52); Hemoglobin 14.9 g/dL (14.0-18.0); Lymphocyte % 25.4 %; Mean Corpuscular HGB Conc 33 g/dL (31-36); Mean Corpuscular Hemoglobin 31 pg (27-31); Mean Corpuscular Volume 93 fL (80-94); Mean Platelet Volume 8.7 fL (7.4-10.4); Nucleated Red Blood Cells % 0.1; Platelet Count 244 10^3/uL (150-450); Red Blood Count 4.78 10^6 /uL (4.18-5.48); Red Cell Distribution Width 14 % (10-15); White Blood Count 6.6 10^3/uL (3.5-10.8)
[2020-01-03] MEDS ORDERED: Regadenoson* 0.4 MG/5 ML SYRINGE ONE (11:51)
[2020-01-03] MEDS ORDERED: Morphine 10 MG/ML VIAL (1 ml) ONE (12:01)
[2020-01-03] MEDS: Morphine INJ* 2 MG/ML 1 ML SYRINGE (TWO MG - NEW SYRINGE VERSION) IV PRN (12:24)
[2020-01-03] MEDS: Nitroglycerin TAB 0.4 MG* 0.4 MG TAB SL PRN ×2 (13:00→13:05)
[2020-01-03] MEDS ORDERED: Ketorolac INJ* 15 MG/ML 1 ML VIAL ONE (13:12)
[2020-01-03] MEDS ORDERED: Morphine INJ* 2 MG/ML 1 ML SYRINGE (TWO MG - NEW SYRINGE VERSION) IV ONE (13:20)
[2020-01-03] MEDS ORDERED: Ketorolac INJ* 15 MG/ML 1 ML VIAL IV PUSH ONE (14:00)
[2020-01-03] MEDS ORDERED: Perflutren Lipid Microsphere* 3 ML VIAL ONE (14:08)
[2020-01-03] MEDS: Rivaroxaban TAB(*) 10 MG PO SCH (14:30)
--- NOTE | 2020-01-03 15:19 | ECHO ---
*[facility]* [place] [address] Fax #: [phone] Limited Transthoracic Echocardiogram Patient: Malena Valentin : 1965 Study Date: 01/03/2020 Age: 54 Gender: M HR: 55 bpm Height: 68.9 in /175 cm BSA: 2.46 m^2 Weight: 261.8 lb /119 kg BMI: 38.9 kg/m^2 *Microfilmer: * Tessie Dobbs RUST *Referring Physician: * Colt Gan MD *Reading Physician: * Colt Gan MD Indications: Chest Pain, unspecified. History: Coronary artery disease. Cerebrovascular accident. Risk factors: Current tobacco use. Dyslipidemia. Brain Aneurysm. Labs, prior tests, procedures, and surgery: Coronary artery bypass grafting. Conclusions Summary: - Left ventricle: The cavity size is normal. Wall thickness is mildly increased. Systolic function is normal. The estimated ejection fraction is 60-65%. - Right ventricle: Systolic function is mildly reduced. - Ventricular septum: There is septal flattening of the interventricular septum consistent with RV volume or pressure overload. - Similar to 01/01/20 including the right ventricular findings. Study data: Transthoracic echocardiogram, limited study. Procedure: Transthoracic echocardiography was performed. Image quality was fair. Intravenous Definity , 3 mlswas administered. Location: Bedside. Patient status: Inpatient. Patient room number: 440. Rhythm: Bradycardia. Findings Left ventricle: The cavity size is normal. Wall thickness is mildly increased. Systolic function is normal. The estimated ejection fraction is 60-65%. Wall motion is normal; there are no regional wall motion abnormalities. Right ventricle: The cavity size is moderately dilated. Systolic function is mildly reduced. Ventricular septum: Postoperative hypokinesis of the interventricular septum is observed. There is septal flattening of the interventricular septum consistent with RV volume or pressure overload. Pericardium: A prominent pericardial fat pad is present. There is no significant pericardial effusion. Prepared and electronically signed by Colt Gan MD 01/03/2020 15:18
[2020-01-03] MEDS: busPIRone TAB* 15 MG PO SCH ×3 (15:21→20:16)
[2020-01-03] MEDS: Diltiazem CD CAP* 120 MG PO SCH (15:31)
[2020-01-03] MEDS: Sertraline* 50 MG TAB PO SCH (15:31)
[2020-01-03] MEDS: Multivitamins/Minerals TAB PO SCH (15:31)
[2020-01-03] MEDS: risperiDONE TAB* 1 MG PO SCH ×2 (15:37→20:16)
[2020-01-03] MEDS: Metoprolol Tartrate TAB* 25 MG PO SCH (15:38)
--- NOTE | 2020-01-03 15:52 | PN ---
Subjective Date of Service: 01/03/20 Interval History: Upon assessment this morning patient denied cp. He also denies sob, nausea, vomiting, dizziness, diaphoresis. Later this afternoon received call from RN that patient required Morphine after stress test due to pain. Patient then reassessed this afternoon and report chest pain is "3" out of 10. Denies associated symptoms. Patient requesting cardiac cath. Objective Active Medications: Acetaminophen (Tylenol Tab*) 650 mg PO Q4H PRN PRN Reason: MILD PAIN or TEMP > 100.4 Last Admin: 01/01/20 17:57 Dose: 650 mg Al Hydrox/Mg Hydrox/Simethicone (Maalox Plus*) 30 ml PO Q6H PRN PRN Reason: INDIGESTION Aspirin (Aspirin Ec Tab*) 81 mg PO DAILY [facility] Buspirone HCl (Buspar Tab *) 15 mg PO TID [facility] Last Admin: 01/03/20 15:32 Dose: 15 mg Diltiazem HCl (Cardizem Cd Cap*) 120 mg PO DAILY [facility] Last Admin: 01/03/20 15:31 Dose: 120 mg Fluphenazine HCl (Prolixin Tab*) 5 mg PO Q6H [facility] Last Admin: 01/03/20 15:32 Dose: 5 mg Hydroxyzine HCl (Atarax Tab*) 25 mg PO Q4HR PRN PRN Reason: ANXIETY Last Admin: 01/01/20 17:57 Dose: 25 mg Metoprolol Succinate (Toprol Xl Tab*) 25 mg PO BID [facility] Multivitamins/Minerals (Theragran/Minerals Tab*) 1 tab PO DAILY [facility] Last Admin: 01/03/20 15:31 Dose: 1 tab Nicotine Polacrilex (Nicotine Gum*) 2 mg PO Q2H PRN PRN Reason: CRAVING Nitroglycerin (Nitroglycerin Tab 0.4 Mg*) 0.4 mg SL Q5M PRN PRN Reason: ANGINA Last Admin: 01/03/20 13:05 Dose: 0.4 mg Ondansetron HCl (Zofran Inj*) 4 mg IV Q4H PRN PRN Reason: NAUSEA/VOMITING Risperidone (Risperdal*) 1 mg PO BID [facility] Last Admin: 01/03/20 15:37 Dose: 1 mg Rivaroxaban (Xarelto(*)) 10 mg PO DAILY [facility] Last Admin: 01/03/20 14:30 Dose: Not Given Senna (Senokot 8.6 Mg Tab*) 1 tab PO BID PRN PRN Reason: CONSTIPATION Sertraline HCl (Zoloft*) 50 mg PO DAILY [facility] Last Admin: 01/03/20 15:31 Dose: 50 mg Trazodone HCl (Desyrel Tab*) 150 mg PO BEDTIME [facility] Last Admin: 01/02/20 21:09 Dose: 150 mg Vital Signs - 8 hr 01/03/20 01/03/20 01/03/20 07:51 12:24 13:01 Temperature 98.3 F Pulse Rate 56 68 Respiratory 18 16 20 Rate Blood Pressure 122/71 159/87 (mmHg) O2 Sat by Pulse 99 100 Oximetry 01/03/20 01/03/20 01/03/20 13:29 13:30 13:35 Temperature Pulse Rate 67 68 Respiratory 20 24 73 Rate Blood Pressure 135/76 137/90 (mmHg) O2 Sat by Pulse 98 100 Oximetry 01/03/20 01/03/20 15:19 15:39 Temperature 98.5 F Pulse Rate 59 Respiratory 20 18 Rate Blood Pressure 131/72 (mmHg) O2 Sat by Pulse 100 Oximetry Oxygen Devices in Use Now: None Appearance: Comfortable, NAD Eyes: No Scleral Icterus Ears/Nose/Mouth/Throat: Clear Oropharnyx, Mucous Membranes Moist Neck: NL Appearance and Movements; NL JVP Respiratory: Symmetrical Chest Expansion and Respiratory Effort, Clear to Auscultation Cardiovascular: NL Sounds; No Murmurs; No JVD, RRR, No Edema Abdominal: NL Sounds; No Tenderness; No Distention Lymphatic: No Cervical Adenopathy Extremities: No Clubbing, Cyanosis Skin: No Rash or Ulcers Neurological: Alert and Oriented x 3 Nutrition: Taking PO's Result Diagrams: 01/03/20 07:30 01/03/20 07:30 Additional Lab and Data: Laboratory Results - last 24 hr 01/02/20 01/02/20 01/03/20 15:58 19:01 07:30 WBC 6.6 RBC 4.78 Hgb 14.9 Hct 45 MCV 93 MCH 31 MCHC 33 RDW 14 Plt Count 244 MPV 8.7 Neut % (Auto) 61.4 Lymph % (Auto) 25.4 [place] % (Auto) 9.8 Eos % (Auto) 3.0 Baso % (Auto) 0.4 Absolute Neuts (auto) 4.1 Absolute Lymphs (auto) 1.7 Absolute Monos (auto) 0.6 Absolute Eos (auto) 0.2 Absolute Basos (auto) 0.0 Absolute Nucleated RBC 0.0 Nucleated RBC % 0.1 ESR 2 1 Sodium Potassium Chloride Carbon Dioxide Anion Gap BUN Creatinine Est GFR ( Amer) Est GFR (Non-Af Amer) BUN/Creatinine Ratio Glucose Calcium Magnesium Troponin I 0.01 C-Reactive Protein 01/03/20 01/03/20 01/03/20 07:30 13:11 14:47 WBC RBC Hgb Hct MCV MCH MCHC RDW Plt Count MPV Neut % (Auto) Lymph % (Auto) Sierra % (Auto) Eos % (Auto) Baso % (Auto) Absolute Neuts (auto) Absolute Lymphs (auto) Absolute Monos (auto) Absolute Eos (auto) Absolute Basos (auto) Absolute Nucleated RBC Nucleated RBC % ESR Sodium 138 Potassium 4.6 Chloride 107 Carbon Dioxide 25 Anion Gap 6 BUN 13 Creatinine 1.11 Est GFR ( Amer) 84.2 Est GFR (Non-Af Amer) 69.6 BUN/Creatinine Ratio 11.7 Glucose 95 Calcium 9.1 Magnesium 2.0 Troponin I 0.01 0.00 0.00 C-Reactive Protein 2.48 Microbiology and Other Data: . Assess/Plan/Problems-Billing Assessment: 54 yr old male with pmh of cad and s/p cabg, dvt/pe, cva, anxiety, schizoaffective, depression; who presented to ed with chest pain. - Patient Problems (1) Chest pain Comment: - Cardiology consulting and we appreciate their assistance. - Cardiac Cath tomorrow. Xarelto being held. - Stress test today read as moderate area of ischemia. Discussed with cardiology who report it was a low quality test. - Possibly pericarditis. Records from previous facility report hx of constrictive pericarditis and subxiphoid pericardial window in 2003. (2) Schizophrenia Comment: - Cont Risperadol and Prolixin (3) HTN (hypertension) Comment: - Cont CCb and BB (4) Anxiety Comment: - Cont Buspar, Zoloft, Atarax, and Trazadone (5) DVT prophylaxis Comment: - Xarelto on hold - SCDs Attending: Rebeca Malave
[2020-01-03] MEDS ORDERED: diPHENhydraMINE PO* 50 MG PO PRN (18:59)
[2020-01-03] MEDS ORDERED: Diazepam TAB(*) 5 MG PO PRN (18:59)
[2020-01-03] MEDS: traZODone TAB* 50 MG TAB PO SCH (20:16)
[2020-01-03] MEDS: Metoprolol Succinate XL TAB* 25 MG PO SCH (20:16)
[2020-01-04] MEDS: fluPHENAZine HCL TAB* 5 MG PO SCH ×4 (00:46→21:10)
[2020-01-04] MEDS ORDERED: NS 0.9% 1000 ML** 1,000 ML IV SCH ×2 (08:00→11:15)
[2020-01-04 08:04] LABS: ABS Eosinophils 0.2 10^3/ul (0-0.6); ABS Lymphocytes 1.8 10^3/ul (1.0-4.8); ABS Monocytes 0.7 10^3/ul (0-0.8); ABS Neutrophils 4.9 10^3/ul (1.5-7.7); Eosinophil % 2.8 %; Hematocrit 43 % (42-52); Hemoglobin 14.3 g/dL (14.0-18.0); Lymphocyte % 23.2 %; Mean Corpuscular HGB Conc 34 g/dL (31-36); Mean Corpuscular Hemoglobin 31 pg (27-31); Mean Corpuscular Volume 93 fL (80-94); Mean Platelet Volume 8.2 fL (7.4-10.4); Platelet Count 232 10^3/uL (150-450); Red Blood Count 4.55 10^6 /uL (4.18-5.48); Red Cell Distribution Width 13 % (10-15); White Blood Count 7.6 10^3/uL (3.5-10.8)
[2020-01-04 08:13] LABS: INR 1.01 (0.82-1.09)
[2020-01-04] MEDS: Metoprolol Succinate XL TAB* 25 MG PO SCH (08:16)
[2020-01-04] MEDS: busPIRone TAB* 15 MG PO SCH ×3 (08:17→21:09)
[2020-01-04] MEDS: Sertraline* 50 MG TAB PO SCH (08:17)
[2020-01-04] MEDS: Diltiazem CD CAP* 120 MG PO SCH (08:17)
[2020-01-04] MEDS: Multivitamins/Minerals TAB PO SCH (08:18)
[2020-01-04] MEDS: risperiDONE TAB* 1 MG PO SCH ×2 (08:18→21:10)
[2020-01-04 08:22] LABS: BUN/Creatinine Ratio 11.7 (8-20); Calcium 8.9 mg/dL (8.6-10.3); EGFR African American 76.9 (>60); EGFR Non-African American 63.6 (>60); Potassium 4.6 mmol/L (3.5-5.0)
[2020-01-04] MEDS ORDERED: methylPREDNISolone SOD 40 MG* 1 ML VIAL IV ONE (09:00)
[2020-01-04] MEDS ORDERED: Aspirin EC TAB* 81 MG TAB.EC PO SCH (09:00)
[2020-01-04] MEDS ORDERED: Midazolam* 1 MG/ML 5 ML VIAL (5 MG) ONE (09:56)
[2020-01-04] MEDS ORDERED: Heparin(*) 1000 UNIT/ML 10 ML VIAL CATH LAB IV ONE (09:56)
[2020-01-04] MEDS ORDERED: fentaNYL* 50 MCG/ML 2 ML VIAL (100 MCG VIAL) ONE ×2 (09:56→10:16)
[2020-01-04] MEDS ORDERED: nitroGLYCERIN DRIP* 0 MCG/0 ML BTL ONE (09:57)
[2020-01-04] MEDS ORDERED: Lidocaine 1% INJ* 10 MG/ML 30 ML SDV ONE (09:57)
[2020-01-04] MEDS ORDERED: VERAPAMIL 2.5 MG/ML 2 ML VIAL ** 5 mg/2 ml ONE (09:57)
[2020-01-04] MEDS ORDERED: Heparin 2 UNITS/ML IVPREMIX* 3,000 ML IV ONE (09:57)
[2020-01-04] MEDS ORDERED: Iodixanol 320 (CONTRAST) 100 ML SDV ONE (09:58)
[2020-01-04 10:35] LABS: Troponin I 0.01 ng/mL (<0.03)
--- NOTE | 2020-01-04 13:06 | CATH ---
CC: Dr. Gan CATH REPORT: DATE OF CATH: 01/04/20 MANAGER CRISIS: Dr. Gan. PROCEDURES: Right common femoral artery access 6.5 Chinese, right common femoral vein access 7 Chinese , right heart catheterization, bilateral selective coronary cineangiography, left heart catheterizati on, simultaneous RV and LV hemodynamic assessment. HISTORY: A 54-year-old male with remote pericardial stripping for pericardial constriction, presenti ng with recurring episodes of severe chest pain with exertion, stress imaging although technically li mited suggested an anteroapical defect. He also has exertional dyspnea. He was referred for coronar y angiography as well as hemodynamic assessment to rule out recurrence of constriction. PROCEDURE ACCESS: Right common femoral artery, right common femoral vein. MEDICATIONS: 1. Subcu lidocaine. 2. IV Versed. 3. IV fentanyl. DIAGNOSTIC CATHETERS: 7-F [place] catheter, 6FL4, 6FR4, 6F pigtail. Resting pressures were recorded, followed by measurement of AO and LV pressures. Simultaneous RV and LV pressures were then recorded. Coronary angiography was then performed after which pulmonary capil tim wedge and RV pressures were re-recorded. AngioSeal was used for closure. HEMODYNAMICS: Initial resting pressures RA mean 5, RV 30/1-11, wedge mean 12, PA 31/11, mean 19. LV 129/14. There was no equalization of RV and LV recordings. Post contrast, RV 35/15, wedge mean 12. ANGIOGRAPHY: LV gram was not performed because of mildly increased creatinine. He had no allergic r eaction after premedication. Left main: The left main is large, smooth, has no stenosis. Incidentally noted are sternotomy wires . LAD: The LAD is large, extends past the apex, it supplies a small diagonal branch and the inferoapic al septum. The LAD has no stenosis. Circumflex: It is large, not dominant, with a large ramus, a moderate posterolateral and ends with s mall posterolateral. The circumflex has no stenosis. RCA: The RCA is large with somewhat anterior takeoff, dominant, supplies a moderate PDA. The RCA ambriz s no stenosis. No cardiac calcification is noted. Right common femoral artery sheath entry is in segment 2. There is no stenosis. CONCLUSION: 1. No obstructive coronary artery disease. 2. Normal resting hemodynamics without evidence of constriction or restriction. 3. Successful AngioSeal right common femoral artery. 4. His chest pain is nonischemic, may be due to chronic recurring pericarditis or noncardiac causes. [id number]/[facility] #: [id number]
--- NOTE | 2020-01-04 14:44 | PN ---
Subjective Date of Service: 01/04/20 Interval History: Patient is feeling relatively well today. Patient states his pain in still intermittent, not affected by movement or breathing, and now rated at about 2/ 10. Patient denies SOB, dizziness, palpitations, F/C, abdominal pain, diarrhea, or other pain. Patient is very relieved about his negative cardiac catheterization. Family History: Unchanged from Admission Social History: Unchanged from Admission Past Medical History: Unchanged from Admission Objective Active Medications: Acetaminophen (Tylenol Tab*) 650 mg PO Q4H PRN PRN Reason: MILD PAIN or TEMP > 100.4 Last Admin: 01/01/20 17:57 Dose: 650 mg Al Hydrox/Mg Hydrox/Simethicone (Maalox Plus*) 30 ml PO Q6H PRN PRN Reason: INDIGESTION Aspirin (Aspirin Ec Tab*) 81 mg PO DAILY [facility] Last Admin: 01/04/20 08:17 Dose: 81 mg Buspirone HCl (Buspar Tab *) 15 mg PO TID [facility] Last Admin: 01/04/20 14:14 Dose: 15 mg Diltiazem HCl (Cardizem Cd Cap*) 120 mg PO DAILY [facility] Last Admin: 01/04/20 08:17 Dose: 120 mg Fluphenazine HCl (Prolixin Tab*) 5 mg PO Q6H [facility] Last Admin: 01/04/20 14:14 Dose: 5 mg Hydroxyzine HCl (Atarax Tab*) 25 mg PO Q4HR PRN PRN Reason: ANXIETY Last Admin: 01/01/20 17:57 Dose: 25 mg Sodium Chloride (Ns 0.9% 1000 Ml) 1,000 mls @ 100 mls/hr IV .per rate [facility] Stop: 01/04/20 15:14 Last Admin: 01/04/20 14:14 Dose: 100 mls/hr Metoprolol Succinate (Toprol Xl Tab*) 25 mg PO BID [facility] Last Admin: 01/04/20 08:16 Dose: 25 mg Multivitamins/Minerals (Theragran/Minerals Tab*) 1 tab PO DAILY [facility] Last Admin: 01/04/20 08:18 Dose: 1 tab Nicotine Polacrilex (Nicotine Gum*) 2 mg PO Q2H PRN PRN Reason: CRAVING Nitroglycerin (Nitroglycerin Tab 0.4 Mg*) 0.4 mg SL Q5M PRN PRN Reason: ANGINA Last Admin: 01/03/20 13:05 Dose: 0.4 mg Ondansetron HCl (Zofran Inj*) 4 mg IV Q4H PRN PRN Reason: NAUSEA/VOMITING Risperidone (Risperdal*) 1 mg PO BID [facility] Last Admin: 01/04/20 08:18 Dose: 1 mg Senna (Senokot 8.6 Mg Tab*) 1 tab PO BID PRN PRN Reason: CONSTIPATION Sertraline HCl (Zoloft*) 50 mg PO DAILY [facility] Last Admin: 01/04/20 08:17 Dose: 50 mg Trazodone HCl (Desyrel Tab*) 150 mg PO BEDTIME [facility] Last Admin: 01/03/20 20:16 Dose: 150 mg Vital Signs - 8 hr 01/04/20 01/04/20 01/04/20 07:57 09:36 09:37 Temperature 98.1 F Pulse Rate 66 Respiratory 20 18 18 Rate Blood Pressure 122/77 (mmHg) O2 Sat by Pulse 99 Oximetry 01/04/20 01/04/20 01/04/20 11:08 11:09 11:24 Temperature Pulse Rate 62 67 Respiratory 20 21 17 Rate Blood Pressure 133/85 140/83 (mmHg) O2 Sat by Pulse 95 95 Oximetry 01/04/20 01/04/20 01/04/20 11:39 11:54 12:00 Temperature Pulse Rate Respiratory 23 21 21 Rate Blood Pressure 148/85 157/91 (mmHg) O2 Sat by Pulse Oximetry 01/04/20 01/04/20 01/04/20 12:09 12:24 12:39 Temperature Pulse Rate Respiratory 20 20 22 Rate Blood Pressure 138/75 138/77 138/74 (mmHg) O2 Sat by Pulse Oximetry 01/04/20 01/04/20 13:16 13:58 Temperature 97.7 F 97.8 F Pulse Rate 77 72 Respiratory 20 18 Rate Blood Pressure 152/77 150/74 (mmHg) O2 Sat by Pulse 98 98 Oximetry Oxygen Devices in Use Now: None Appearance: Patient is a 54yo male who appears stated age and is sitting in the bed in [facility]. Eyes: No Scleral Icterus, PERRLA Ears/Nose/Mouth/Throat: NL Teeth, Lips, Gums, Clear Oropharnyx Neck: NL Appearance and Movements; NL JVP, Trachea Midline Respiratory: Symmetrical Chest Expansion and Respiratory Effort, Clear to Auscultation Cardiovascular: NL Sounds; No Murmurs; No JVD, RRR, No Edema Abdominal: NL Sounds; No Tenderness; No Distention, No Hepatosplenomegaly Lymphatic: No Cervical Adenopathy Extremities: No Edema, No Clubbing, Cyanosis Skin: No Rash or Ulcers, No Nodules or Sclerosis Neurological: Alert and Oriented x 3, NL Sensation, NL Muscle Strength and Tone , - - CN II-XII intact. Result Diagrams: 01/04/20 07:22 01/04/20 07:22 Additional Lab and Data: Laboratory Results - last 24 hr Microbiology and Other Data: . Assess/Plan/Problems-Billing Assessment: 54 yr old male with pmh of cad and s/p cabg, dvt/pe, cva, anxiety, schizoaffective, depression; who presented to ed with chest pain with negative troponins and a negative cardiac cath. - Patient Problems (1) Chest pain Current Visit: No Status: Acute Code(s): R07.9 - CHEST PAIN, UNSPECIFIED SNOMED Code(s): 32368452 Comment: - Cardiology consulting and we appreciate their assistance. - Cardiac Cath shows no occlusive disease. Xarelto being held. - Stress test read as moderate area of ischemia. Discussed with cardiology who report it was a low quality test. - Possibly pericarditis. Records from previous facility report hx of constrictive pericarditis and subxiphoid pericardial window in 2003. - Unclear cause of previous pericarditis, possibly viral at the time. - Treat with Aspirin and Colchicine after Diltiazem washout. - Steroids given by cardiology. (2) Anxiety Current Visit: Yes Status: Acute Code(s): F41.9 - ANXIETY DISORDER, UNSPECIFIED SNOMED Code(s): 46486650 Comment: - Cont Buspar, Zoloft, Atarax, and Trazadone (3) Pulmonary hypertension Current Visit: Yes Status: Acute Code(s): I27.20 - PULMONARY HYPERTENSION, UNSPECIFIED SNOMED Code(s): 06380941 Comment: - pHTN on echo with decreased RV systolic function - No obvious cause. - Possibly CTEPH from previous PE, might benefit from a referral to pHTN center. (4) Dyslipidemia Current Visit: No Status: Acute Code(s): E78.5 - HYPERLIPIDEMIA, UNSPECIFIED SNOMED Code(s): 910438485 Comment: - Cont statin - LDL 25 (5) HTN (hypertension) Current Visit: No Status: Acute Code(s): I10 - ESSENTIAL (PRIMARY) HYPERTENSION SNOMED Code(s): 55813351 Comment: - Stop CCB and double Metoprolol to reduce pill burden and interactions (No indication for anti-anginal effect with clear cath) - Normotensive - Start Colchicine if needed after Diltiazem washout. (6) History of pulmonary embolism Current Visit: Yes Status: Acute Code(s): Z86.711 - PERSONAL HISTORY OF PULMONARY EMBOLISM SNOMED Code(s): 151642277 Comment: - Unclear provocation. - Xarelto on hold at this time. (7) Schizophrenia Current Visit: No Status: Acute Code(s): F20.9 - SCHIZOPHRENIA, UNSPECIFIED SNOMED Code(s): 57923633 Comment: - Cont Risperadol and Prolixin (8) DVT prophylaxis Current Visit: No Status: Acute Code(s): KGG2529 - SNOMED Code(s): 307864808 Comment: - Xarelto on hold - SCDs
[2020-01-04] MEDS ORDERED: Aspirin TAB* 325 MG PO SCH (17:00)
[2020-01-04] MEDS: Metoprolol Succinate XL TAB* 50 MG PO SCH (21:09)
[2020-01-04] MEDS: traZODone TAB* 50 MG TAB PO SCH (21:10)
[2020-01-05] MEDS: Aspirin TAB* 325 MG PO SCH ×2 (00:32→05:42)
[2020-01-05] MEDS: fluPHENAZine HCL TAB* 5 MG PO SCH ×3 (05:42→17:20)
[2020-01-05 06:38] LABS: BUN/Creatinine Ratio 13.9 (8-20); Calcium 8.8 mg/dL (8.6-10.3); EGFR African American 93.9 (>60); EGFR Non-African American 77.6 (>60); Potassium 4.4 mmol/L (3.5-5.0)
[2020-01-05] MEDS: Sertraline* 50 MG TAB PO SCH (08:59)
[2020-01-05] MEDS: risperiDONE TAB* 1 MG PO SCH ×2 (08:59→21:19)
[2020-01-05] MEDS: Multivitamins/Minerals TAB PO SCH (08:59)
[2020-01-05] MEDS: busPIRone TAB* 15 MG PO SCH ×3 (08:59→21:18)
[2020-01-05] MEDS: Metoprolol Succinate XL TAB* 50 MG PO SCH ×2 (08:59→21:18)
--- NOTE | 2020-01-05 11:16 | PN ---
Subjective Date of Service: 01/05/20 Interval History: Patient is feeling better still. Patient's pain is now only trace at 1/10 with no worsening with activity. Patient cannot identify an exact intervention that improved his pain. Patient denies F/C, CP, SOB, Dizziness, abdominal pain, or other pain. Family History: Unchanged from Admission Social History: Unchanged from Admission Past Medical History: Unchanged from Admission Objective Active Medications: Acetaminophen (Tylenol Tab*) 650 mg PO Q4H PRN PRN Reason: MILD PAIN or TEMP > 100.4 Last Admin: 01/01/20 17:57 Dose: 650 mg Al Hydrox/Mg Hydrox/Simethicone (Maalox Plus*) 30 ml PO Q6H PRN PRN Reason: INDIGESTION Buspirone HCl (Buspar Tab *) 15 mg PO TID [facility] Last Admin: 01/05/20 08:59 Dose: 15 mg Colchicine (Colcrys*) 1.2 mg PO BID [facility] Stop: 01/05/20 21:01 Fluphenazine HCl (Prolixin Tab*) 5 mg PO Q6HR [facility] Last Admin: 01/05/20 05:42 Dose: 5 mg Hydroxyzine HCl (Atarax Tab*) 25 mg PO Q4HR PRN PRN Reason: ANXIETY Last Admin: 01/01/20 17:57 Dose: 25 mg Metoprolol Succinate (Toprol Xl Tab*) 50 mg PO BID [facility] Last Admin: 01/05/20 08:59 Dose: 50 mg Multivitamins/Minerals (Theragran/Minerals Tab*) 1 tab PO DAILY [facility] Last Admin: 01/05/20 08:59 Dose: 1 tab Nicotine Polacrilex (Nicotine Gum*) 2 mg PO Q2H PRN PRN Reason: CRAVING Nitroglycerin (Nitroglycerin Tab 0.4 Mg*) 0.4 mg SL Q5M PRN PRN Reason: ANGINA Last Admin: 01/03/20 13:05 Dose: 0.4 mg Ondansetron HCl (Zofran Inj*) 4 mg IV Q4H PRN PRN Reason: NAUSEA/VOMITING Risperidone (Risperdal*) 1 mg PO BID [facility] Last Admin: 01/05/20 08:59 Dose: 1 mg Senna (Senokot 8.6 Mg Tab*) 1 tab PO BID PRN PRN Reason: CONSTIPATION Sertraline HCl (Zoloft*) 50 mg PO DAILY [facility] Last Admin: 01/05/20 08:59 Dose: 50 mg Trazodone HCl (Desyrel Tab*) 150 mg PO BEDTIME [facility] Last Admin: 01/04/20 21:10 Dose: 150 mg Vital Signs - 8 hr 01/05/20 01/05/20 01/05/20 05:56 07:41 08:00 Temperature 98.0 F Pulse Rate 60 Respiratory 16 16 Rate Blood Pressure 123/76 (mmHg) O2 Sat by Pulse 96 100 Oximetry Oxygen Devices in Use Now: None Appearance: Patient is a 54yo male who appears stated age and is sitting in the bed in [facility]. Eyes: No Scleral Icterus, PERRLA Ears/Nose/Mouth/Throat: NL Teeth, Lips, Gums, Clear Oropharnyx, Mucous Membranes Moist Neck: NL Appearance and Movements; NL JVP, Trachea Midline Respiratory: Symmetrical Chest Expansion and Respiratory Effort, Clear to Auscultation Cardiovascular: NL Sounds; No Murmurs; No JVD, RRR, No Edema Extremities: No Edema, No Clubbing, Cyanosis Skin: No Rash or Ulcers, No Nodules or Sclerosis Neurological: Alert and Oriented x 3, NL Sensation, NL Muscle Strength and Tone , - - CN II-XII intact. Result Diagrams: 01/04/20 07:22 01/05/20 06:12 Additional Lab and Data: Laboratory Results - last 24 hr Microbiology and Other Data: . Assess/Plan/Problems-Billing Assessment: 54 yr old male with pmh of cad and s/p cabg, dvt/pe, cva, anxiety, schizoaffective, depression; who presented to ed with chest pain with negative troponins and a negative cardiac cath. - Patient Problems (1) Chest pain Current Visit: No Status: Acute Code(s): R07.9 - CHEST PAIN, UNSPECIFIED SNOMED Code(s): 23808289 Comment: - Cardiology consulting and we appreciate their assistance. - Cardiac Cath shows no occlusive disease. Xarelto being held. - Stress test read as moderate area of ischemia. Discussed with cardiology who report it was a low quality test. - Possibly pericarditis. Records from previous facility report hx of constrictive pericarditis and subxiphoid pericardial window in 2003. - Unclear cause of previous pericarditis, possibly viral at the time. - Treat with Colchicine after Diltiazem washout. - Steroids given by cardiology. - Stop Aspirin in anticipation of restarting Xarelto. (2) Anxiety Current Visit: Yes Status: Acute Code(s): F41.9 - ANXIETY DISORDER, UNSPECIFIED SNOMED Code(s): 01978117 Comment: - Cont Buspar, Zoloft, Atarax, and Trazadone (3) Pulmonary hypertension Current Visit: Yes Status: Acute Code(s): I27.20 - PULMONARY HYPERTENSION, UNSPECIFIED SNOMED Code(s): 24253670 Comment: - pHTN on echo with decreased RV systolic function - No obvious cause. - Will do V/Q scan when available to assess for PE or Chronic disease. (4) Dyslipidemia Current Visit: No Status: Acute Code(s): E78.5 - HYPERLIPIDEMIA, UNSPECIFIED SNOMED Code(s): 102770002 Comment: - Cont statin - LDL 25 (5) HTN (hypertension) Current Visit: No Status: Acute Code(s): I10 - ESSENTIAL (PRIMARY) HYPERTENSION SNOMED Code(s): 10692333 Comment: - Stop CCB and double Metoprolol to reduce pill burden and interactions (No indication for anti-anginal effect with clear cath) - Normotensive - Start Colchicine (6) History of pulmonary embolism Current Visit: Yes Status: Acute Code(s): Z86.711 - PERSONAL HISTORY OF PULMONARY EMBOLISM SNOMED Code(s): 597218218 Comment: - Unclear provocation. - Xarelto on hold at this time. Resume at Full dose tomorrow. (7) Schizophrenia Current Visit: No Status: Acute Code(s): F20.9 - SCHIZOPHRENIA, UNSPECIFIED SNOMED Code(s): 49585090 Comment: - Cont Risperadol and Prolixin (8) DVT prophylaxis Current Visit: No Status: Acute Code(s): NZX0701 - SNOMED Code(s): 596334583 Comment: - Xarelto on hold - SCDs Status and Disposition: Inpatient, Will need inpatient substance abuse rehab at D/C.
[2020-01-05] MEDS: Colchicine* 0.6 MG TAB PO SCH ×2 (11:36→21:19)
[2020-01-05] MEDS: traZODone TAB* 50 MG TAB PO SCH (21:18)
[2020-01-06] MEDS: fluPHENAZine HCL TAB* 5 MG PO SCH ×4 (00:30→17:11)
[2020-01-06 05:49] LABS: BUN/Creatinine Ratio 13.4 (8-20); Calcium 8.7 mg/dL (8.6-10.3); EGFR African American 77.7 (>60); EGFR Non-African American 64.2 (>60); Potassium 4.4 mmol/L (3.5-5.0)
[2020-01-06] MEDS: Sertraline* 50 MG TAB PO SCH (08:42)
[2020-01-06] MEDS: risperiDONE TAB* 1 MG PO SCH ×2 (08:42→20:24)
[2020-01-06] MEDS: busPIRone TAB* 15 MG PO SCH ×3 (08:42→20:24)
[2020-01-06] MEDS: Multivitamins/Minerals TAB PO SCH (08:42)
[2020-01-06] MEDS: Metoprolol Succinate XL TAB* 50 MG PO SCH ×2 (08:42→20:24)
[2020-01-06] MEDS: Nitroglycerin TAB 0.4 MG* 0.4 MG TAB SL PRN (08:51)
[2020-01-06] MEDS ORDERED: Ketorolac INJ* 15 MG/ML 1 ML VIAL IV PUSH ONE (08:58)
[2020-01-06] MEDS ORDERED: Morphine INJ* 2 MG/ML 1 ML SYRINGE (TWO MG - NEW SYRINGE VERSION) IV ONE (11:16)
--- NOTE | 2020-01-06 14:23 | PN ---
Subjective Date of Service: 01/06/20 Interval History: Mr. Valentin is not feeling well this morning. He developed CP this morning, 03/07, pressure across upper chest. No aggravating or alleviating factors. Nitro did not help. Denies SOB, diaphoresis, N/V. Endorses poor appetite. Nursing reported CP this morning, otherwise no concerns. Family History: Unchanged from Admission Social History: Unchanged from Admission Past Medical History: Unchanged from Admission Objective Active Medications: Acetaminophen (Tylenol Tab*) 650 mg PO Q4H PRN MILD PAIN or TEMP > 100.4 Al Hydrox/Mg Hydrox/Simethicone (Maalox Plus*) 30 ml PO Q6H PRN INDIGESTION Buspirone HCl (Buspar Tab *) 15 mg PO TID [facility] Fluphenazine HCl (Prolixin Tab*) 5 mg PO Q6HR [facility] Hydroxyzine HCl (Atarax Tab*) 25 mg PO Q4HR PRN ANXIETY Metoprolol Succinate (Toprol Xl Tab*) 50 mg PO BID [facility] Multivitamins/Minerals (Theragran/Minerals Tab*) 1 tab PO DAILY [facility] Nicotine Polacrilex (Nicotine Gum*) 2 mg PO Q2H PRN CRAVING Nitroglycerin (Nitroglycerin Tab 0.4 Mg*) 0.4 mg SL Q5M PRN ANGINA Ondansetron HCl (Zofran Inj*) 4 mg IV Q4H PRN NAUSEA/VOMITING Risperidone (Risperdal*) 1 mg PO BID [facility] Rivaroxaban (Xarelto(*)) 20 mg PO QPM [facility] Senna (Senokot 8.6 Mg Tab*) 1 tab PO BID PRN CONSTIPATION Sertraline HCl (Zoloft*) 50 mg PO DAILY [facility] Trazodone HCl (Desyrel Tab*) 150 mg PO BEDTIME [facility] Vital Signs - 8 hr 01/06/20 01/06/20 01/06/20 07:45 08:00 08:56 Temperature 97.7 F Pulse Rate 62 68 Respiratory 16 16 Rate Blood Pressure 121/68 120/68 (mmHg) O2 Sat by Pulse 100 99 Oximetry 01/06/20 01/06/20 01/06/20 11:33 12:05 13:50 Temperature 97.4 F Pulse Rate 60 Respiratory 20 18 16 Rate Blood Pressure 130/71 (mmHg) O2 Sat by Pulse 99 Oximetry Oxygen Devices in Use Now: None Appearance: Middle-aged male lying in bed in [facility] Ears/Nose/Mouth/Throat: Mucous Membranes Moist Neck: NL Appearance and Movements; NL JVP, Trachea Midline Respiratory: Symmetrical Chest Expansion and Respiratory Effort, Clear to Auscultation Cardiovascular: NL Sounds; No Murmurs; No JVD, RRR Abdominal: NL Sounds; No Tenderness; No Distention Extremities: No Edema Neurological: Alert and Oriented x 3 Lines/Tubes/Other Access: Clean, Dry and Intact Peripheral IV Nutrition: Taking PO's Result Diagrams: 01/04/20 07:22 01/06/20 05:05 Assess/Plan/Problems-Billing Assessment: Mr. Valentin is a 54 yo M with PMH of CAD s/p CABG, VTE, CVA, anxiety, schizoaffective, depression; who presented to ED with chest pain with negative troponins and a negative cardiac cath. - Patient Problems (1) Chest pain Code(s): R07.9 - CHEST PAIN, UNSPECIFIED Comment: - Possibly pericarditis; records from previous facility report hx of constrictive pericarditis and subxiphoid pericardial window in 2003 - Unclear cause of previous pericarditis, possibly viral at the time - Stress test read as moderate area of ischemia; discussed with cardiology who report it was a low quality test - Cardiac cath shows no occlusive disease - Appreciate Cardiology consult; steroids given 2/8 - Stop Aspirin in anticipation of restarting Xarelto - Treat with colchicine after diltiazem washout (2) HTN (hypertension) Code(s): I10 - ESSENTIAL (PRIMARY) HYPERTENSION Comment: - Normotensive - Stop CCB and double metoprolol to reduce pill burden and interactions - Continue metoprolol (3) Pulmonary hypertension Code(s): I27.20 - PULMONARY HYPERTENSION, UNSPECIFIED Comment: - pHTN on echo with decreased RV systolic function - No obvious cause - VQ scan low probability (4) History of pulmonary embolism Code(s): Z86.711 - PERSONAL HISTORY OF PULMONARY EMBOLISM Comment: - Unclear provocation - Continue Xarelto (5) Anxiety Code(s): F41.9 - ANXIETY DISORDER, UNSPECIFIED Comment: - Continue buspirone, sertraline, hydroxyzine, Trazadone (6) Schizophrenia Code(s): F20.9 - SCHIZOPHRENIA, UNSPECIFIED Comment: - Cont risperidone, Prolixin (7) Dyslipidemia Code(s): E78.5 - HYPERLIPIDEMIA, UNSPECIFIED Comment: - LDL 79 (8) DVT prophylaxis Comment: - Xarelto (9) Full code status Code(s): Z78.9 - OTHER SPECIFIED HEALTH STATUS Comment: Status and Disposition: Inpatient, Will need inpatient substance abuse rehab at d/c. Attending: Gladis Monterroso
[2020-01-06] MEDS: Rivaroxaban TAB(*) 20 MG TAB PO SCH (17:11)
[2020-01-06] MEDS: Colchicine* 0.6 MG TAB PO SCH (20:24)
[2020-01-06] MEDS: Gabapentin CAP(*) 100 MG PO SCH (20:24)
[2020-01-06] MEDS: traZODone TAB* 50 MG TAB PO SCH (20:25)
[2020-01-07] MEDS: fluPHENAZine HCL TAB* 5 MG PO SCH ×5 (00:45→23:34)
[2020-01-07 07:10] LABS: BUN/Creatinine Ratio 19.3 (8-20); Calcium 8.7 mg/dL (8.6-10.3); Potassium 4.3 mmol/L (3.5-5.0)
[2020-01-07] MEDS: Metoprolol Succinate XL TAB* 50 MG PO SCH ×2 (09:20→20:46)
[2020-01-07] MEDS: Sertraline* 50 MG TAB PO SCH (09:20)
[2020-01-07] MEDS: busPIRone TAB* 15 MG PO SCH ×3 (09:20→20:47)
[2020-01-07] MEDS: Colchicine* 0.6 MG TAB PO SCH ×2 (09:20→20:46)
[2020-01-07] MEDS: Gabapentin CAP(*) 100 MG PO SCH ×2 (09:20→20:47)
[2020-01-07] MEDS: Multivitamins/Minerals TAB PO SCH (09:20)
[2020-01-07] MEDS: risperiDONE TAB* 1 MG PO SCH ×2 (09:21→20:46)
--- NOTE | 2020-01-07 16:46 | PN ---
Subjective Date of Service: 01/07/20 Interval History: Mr. Valentin is feeling better today. He has not had any recurrent chest pain after starting colchicine and gabapentin. Denies SOB, N/V, diaphoresis. He would like to have a regular diet. No concerns from nursing. Family History: Unchanged from Admission Social History: Unchanged from Admission Past Medical History: Unchanged from Admission Objective Active Medications: Acetaminophen (Tylenol Tab*) 650 mg PO Q4H PRN MILD PAIN or TEMP > 100.4 Al Hydrox/Mg Hydrox/Simethicone (Maalox Plus*) 30 ml PO Q6H PRN INDIGESTION Buspirone HCl (Buspar Tab *) 15 mg PO TID [facility] Colchicine (Colcrys*) 0.6 mg PO BID [facility] Fluphenazine HCl (Prolixin Tab*) 5 mg PO Q6HR [facility] Gabapentin (Neurontin Cap(*)) 100 mg PO BID [facility] Hydroxyzine HCl (Atarax Tab*) 25 mg PO Q4HR PRN ANXIETY Metoprolol Succinate (Toprol Xl Tab*) 50 mg PO BID [facility] Multivitamins/Minerals (Theragran/Minerals Tab*) 1 tab PO DAILY [facility] Nicotine Polacrilex (Nicotine Gum*) 2 mg PO Q2H PRN C[facility] Ondansetron HCl (Zofran Inj*) 4 mg IV Q4H PRN NAUSEA/VOMITING Risperidone (Risperdal*) 1 mg PO BID [facility] Rivaroxaban (Xarelto(*)) 20 mg PO QPM [facility] Senna (Senokot 8.6 Mg Tab*) 1 tab PO BID PRN CONSTIP[facility] Sertraline HCl (Zoloft*) 50 mg PO DAILY [facility] Trazodone HCl (Desyrel Tab*) 150 mg PO BEDTIME [facility] Vital Signs - 8 hr 01/07/20 01/07/20 09:20 11:27 Temperature 97.6 F Pulse Rate 64 Respiratory 18 20 Rate Blood Pressure 119/56 (mmHg) O2 Sat by Pulse 100 Oximetry Oxygen Devices in Use Now: None Appearance: Middle-aged male sitting in bed in [facility] Ears/Nose/Mouth/Throat: Mucous Membranes Moist Neck: NL Appearance and Movements; NL JVP, Trachea Midline Respiratory: Symmetrical Chest Expansion and Respiratory Effort, Clear to Auscultation Cardiovascular: NL Sounds; No Murmurs; No JVD, RRR Abdominal: NL Sounds; No Tenderness; No Distention Extremities: No Edema Neurological: Alert and Oriented x 3 Lines/Tubes/Other Access: Clean, Dry and Intact Peripheral IV Nutrition: Taking PO's Result Diagrams: 01/04/20 07:22 01/07/20 06:22 Assess/Plan/Problems-Billing Assessment: Mr. Valentin is a 54 yo M with PMH of CAD s/p CABG, VTE, CVA, anxiety, schizoaffective, depression; who presented to ED with chest pain with negative troponins and a negative cardiac cath. - Patient Problems (1) Chest pain Code(s): R07.9 - CHEST PAIN, UNSPECIFIED Comment: - Records from previous facility report hx of constrictive pericarditis and subxiphoid pericardial window in 2003 as well as pericardial stripping - Unclear cause of previous pericarditis, possibly viral at the time - Stress test read as moderate area of ischemia; discussed with cardiology who report it was a low quality test - Cardiac cath shows no occlusive disease - Appreciate Cardiology consult; steroids given 01/05 - Suspect this pain is musculoskeletal/neuropathic (from pericardial stripping) - Continue colchicine, gabapentin (2) HTN (hypertension) Code(s): I10 - ESSENTIAL (PRIMARY) HYPERTENSION Comment: - Normotensive - Stop CCB to reduce pill burden and interactions - Continue metoprolol (3) Pulmonary hypertension Code(s): I27.20 - PULMONARY HYPERTENSION, UNSPECIFIED Comment: - pHTN on echo with decreased RV systolic function - No obvious cause - VQ scan low probability (4) History of pulmonary embolism Code(s): Z86.711 - PERSONAL HISTORY OF PULMONARY EMBOLISM Comment: - Unclear provocation - Continue Xarelto (5) Anxiety Code(s): F41.9 - ANXIETY DISORDER, UNSPECIFIED Comment: - Continue buspirone, sertraline, hydroxyzine, Trazadone (6) Schizophrenia Code(s): F20.9 - SCHIZOPHRENIA, UNSPECIFIED Comment: - Cont risperidone, Prolixin (7) Dyslipidemia Code(s): E78.5 - HYPERLIPIDEMIA, UNSPECIFIED Comment: - LDL 79 (8) DVT prophylaxis Comment: - Xarelto (9) Full code status Code(s): Z78.9 - OTHER SPECIFIED HEALTH STATUS Comment: Status and Disposition: Inpatient, Will need inpatient substance abuse rehab at d/c. Attending: Gladis Monterroso
[2020-01-07] MEDS: Rivaroxaban TAB(*) 20 MG TAB PO SCH (17:17)
[2020-01-07] MEDS: traZODone TAB* 50 MG TAB PO SCH (20:47)
[2020-01-08] MEDS: fluPHENAZine HCL TAB* 5 MG PO SCH ×4 (06:06→23:40)
[2020-01-08] MEDS: risperiDONE TAB* 1 MG PO SCH ×2 (09:53→21:08)
[2020-01-08] MEDS: Metoprolol Succinate XL TAB* 50 MG PO SCH ×2 (09:53→21:07)
[2020-01-08] MEDS: Colchicine* 0.6 MG TAB PO SCH ×2 (09:53→21:08)
[2020-01-08] MEDS: Gabapentin CAP(*) 100 MG PO SCH ×2 (09:53→21:08)
[2020-01-08] MEDS: Multivitamins/Minerals TAB PO SCH (09:53)
[2020-01-08] MEDS: busPIRone TAB* 15 MG PO SCH ×3 (09:54→21:07)
[2020-01-08] MEDS: Sertraline* 50 MG TAB PO SCH (09:54)
--- NOTE | 2020-01-08 14:02 | PN ---
Subjective Date of Service: 01/08/20 Interval History: January states his chest is feeling "OK." He had pain for 30-40 min yesterday that was relieved with toradol, morphine. He has had no pain today. Patient denies SOB, cough, fevers, chills. He has no other complaints today. Family History: Unchanged from Admission Social History: Unchanged from Admission Past Medical History: Unchanged from Admission Objective Active Medications: Acetaminophen (Tylenol Tab*) 650 mg PO Q4H PRN PRN Reason: MILD PAIN or TEMP > 100.4 Last Admin: 01/01/20 17:57 Dose: 650 mg Al Hydrox/Mg Hydrox/Simethicone (Maalox Plus*) 30 ml PO Q6H PRN PRN Reason: INDIGESTION Buspirone HCl (Buspar Tab *) 15 mg PO TID [facility] Last Admin: 01/08/20 09:54 Dose: 15 mg Colchicine (Colcrys*) 0.6 mg PO BID [facility] Last Admin: 01/08/20 09:53 Dose: 0.6 mg Fluphenazine HCl (Prolixin Tab*) 5 mg PO Q6HR [facility] Last Admin: 01/08/20 12:15 Dose: 5 mg Gabapentin (Neurontin Cap(*)) 100 mg PO BID [facility] Last Admin: 01/08/20 09:53 Dose: 100 mg Hydroxyzine HCl (Atarax Tab*) 25 mg PO Q4HR PRN PRN Reason: ANXIETY Last Admin: 01/01/20 17:57 Dose: 25 mg Metoprolol Succinate (Toprol Xl Tab*) 50 mg PO BID [facility] Last Admin: 01/08/20 09:53 Dose: 50 mg Multivitamins/Minerals (Theragran/Minerals Tab*) 1 tab PO DAILY [facility] Last Admin: 01/08/20 09:53 Dose: 1 tab Nicotine Polacrilex (Nicotine Gum*) 2 mg PO Q2H PRN PRN Reason: CRAVING Nitroglycerin (Nitroglycerin Tab 0.4 Mg*) 0.4 mg SL Q5M PRN PRN Reason: ANGINA Last Admin: 01/06/20 08:51 Dose: 0.4 mg Ondansetron HCl (Zofran Inj*) 4 mg IV Q4H PRN PRN Reason: NAUSEA/VOMITING Risperidone (Risperdal*) 1 mg PO BID [facility] Last Admin: 01/08/20 09:53 Dose: 1 mg Rivaroxaban (Xarelto(*)) 20 mg PO QPM [facility] Last Admin: 01/07/20 17:17 Dose: 20 mg Senna (Senokot 8.6 Mg Tab*) 1 tab PO BID PRN PRN Reason: CONSTIPATION Sertraline HCl (Zoloft*) 50 mg PO DAILY [facility] Last Admin: 01/08/20 09:54 Dose: 50 mg Trazodone HCl (Desyrel Tab*) 150 mg PO BEDTIME [facility] Last Admin: 01/07/20 20:47 Dose: 150 mg Vital Signs: Temp Pulse Resp BP Pulse Ox 97.6 F 66 16 138/80 100 01/08/20 03:40 01/08/20 03:40 01/08/20 09:53 01/08/20 03:40 01/08/20 03:40 Oxygen Devices in Use Now: None Appearance: Mr. Valentin is an obese, middle-aged black man who is sitting up in bed. He appears to be in no acute distress. Eyes: No Scleral Icterus, PERRLA Ears/Nose/Mouth/Throat: NL Teeth, Lips, Gums, Clear Oropharnyx, Mucous Membranes Moist Neck: NL Appearance and Movements; NL JVP, Trachea Midline Respiratory: Symmetrical Chest Expansion and Respiratory Effort, Clear to Auscultation Cardiovascular: NL Sounds; No Murmurs; No JVD, RRR, No Edema, - - Chest wall nontedner to palpation Abdominal: NL Sounds; No Tenderness; No Distention, No Hepatosplenomegaly Extremities: No Edema, No Clubbing, Cyanosis Neurological: Alert and Oriented x 3 Result Diagrams: 01/04/20 07:22 01/07/20 06:22 Additional Lab and Data: Laboratory Results - last 24 hr Microbiology and Other Data: . Assess/Plan/Problems-Billing Assessment: Mr. Valentin is a 54 yo M with PMH of CAD s/p CABG, VTE, CVA, anxiety, schizoaffective, depression; who presented to ED with chest pain with negative troponins and a negative cardiac cath. - Patient Problems (1) Chest pain Comment: - Records from previous facility report hx of constrictive pericarditis and subxiphoid pericardial window in 2003 as well as pericardial stripping - Unclear cause of previous pericarditis, possibly viral at the time - Stress test read as moderate area of ischemia; discussed with cardiology who report it was a low quality test - Cardiac cath shows no occlusive disease - Appreciate Cardiology consult; steroids given 01/05 - Suspect this pain is musculoskeletal/neuropathic (from pericardial stripping) - Continue colchicine, gabapentin (2) Pulmonary hypertension Comment: - pHTN on echo with decreased RV systolic function - No obvious cause - VQ scan low probability for PE (3) HTN (hypertension) Comment: - SBP 100-130's - Stop CCB to reduce pill burden and interactions - Continue metoprolol (4) History of pulmonary embolism Comment: - Unclear provocation - Continue Xarelto (5) Anxiety Comment: - Continue buspirone, sertraline, hydroxyzine, Trazadone (6) Dyslipidemia Comment: - LDL 79 (7) Schizophrenia Comment: - Cont risperidone, Prolixin (8) DVT prophylaxis Comment: - Xarelto (9) Full code status Comment: Status and Disposition: Inpatient. Plan for inpatient substance abuse rehab at d/c.
[2020-01-08] MEDS: Rivaroxaban TAB(*) 20 MG TAB PO SCH (17:46)
[2020-01-08] MEDS: traZODone TAB* 50 MG TAB PO SCH (21:07)
[2020-01-09] MEDS: fluPHENAZine HCL TAB* 5 MG PO SCH (06:11)
[2020-01-09 06:24] LABS: ABS Basophils 0.1 10^3/ul (0-0.2); ABS Eosinophils 0.2 10^3/ul (0-0.6); ABS Lymphocytes 2.2 10^3/ul (1.0-4.8); ABS Monocytes 0.8 10^3/ul (0-0.8); ABS Neutrophils 4.2 10^3/ul (1.5-7.7); Eosinophil % 2.7 %; Hematocrit 43 % (42-52); Hemoglobin 14.5 g/dL (14.0-18.0); Lymphocyte % 29.4 %; Mean Corpuscular HGB Conc 34 g/dL (31-36); Mean Corpuscular Hemoglobin 32 pg (27-31); Mean Corpuscular Volume 93 fL (80-94); Mean Platelet Volume 8.5 fL (7.4-10.4); Nucleated Red Blood Cells % 0.1; Platelet Count 240 10^3/uL (150-450); Red Cell Distribution Width 13 % (10-15); White Blood Count 7.5 10^3/uL (3.5-10.8)
[2020-01-09 06:43] LABS: Calcium 8.8 mg/dL (8.6-10.3); Potassium 4.3 mmol/L (3.5-5.0)
[2020-01-09 07:14] LABS: BUN/Creatinine Ratio 14.6 (8-20); EGFR African American 91.8 (>60); EGFR Non-African American 75.8 (>60)
[2020-01-09] MEDS: busPIRone TAB* 15 MG PO SCH (09:19)
[2020-01-09] MEDS: Metoprolol Succinate XL TAB* 50 MG PO SCH (09:19)
[2020-01-09] MEDS: Multivitamins/Minerals TAB PO SCH (09:23)
[2020-01-09] MEDS: Gabapentin CAP(*) 100 MG PO SCH (09:23)
[2020-01-09] MEDS: Colchicine* 0.6 MG TAB PO SCH (09:23)
[2020-01-09] MEDS: Sertraline* 50 MG TAB PO SCH (09:23)
[2020-01-09] MEDS: risperiDONE TAB* 1 MG PO SCH (09:23)
[2020-01-09 11:18] VITALS: BP 117/66
--- NOTE | 2020-01-09 11:55 | DS ---
CC: [facility]; [facility] * DISCHARGE SUMMARY: DATE OF ADMISSION: 01/01/20 DATE OF DISCHARGE: 01/09/20 PRIMARY CARE PROVIDER: [facility]. AIR CONDITIONER INSTALLER HELPER: [facility]. ATTENDING PHYSICIAN: Dr. Gladis Monterroso * (dictated by MARY Joshi). PRIMARY DIAGNOSES: 1. Chest pain, musculoskeletal/neuropathic. 2. Pulmonary hypertension. SECONDARY DIAGNOSES: 1. Coronary artery disease, status post CABG. 2. Cerebrovascular accident due to aneurysm. 3. Schizoaffective disorder. 4. Deep vein thrombosis/pulmonary embolism, on Xarelto. 5. Depression. 6. Anxiety. DISCHARGE MEDICATIONS: Home medications: 1. Acetaminophen 650 mg p.o. q.4 hours p.r.n., MDD 4 tabs. 2. Buspirone 15 mg p.o. t.i.d. 3. Diphenhydramine 50 to 75 mg p.o. at bedtime p.r.n. 4. Fluphenazine 5 mg p.o. q.6 hours. 6. Hydroxyzine 25 mg p.o. q.4 hours p.r.n. 7. Multivitamin 1 tab p.o. daily. 8. Nitroglycerin 0.4 mg sublingual q.5 minutes p.r.n. chest pain. 9. Risperidone 1 mg p.o. b.i.d. 10. Sertraline 50 mg p.o. daily. 11. Trazodone 150 mg p.o. at bedtime. New home medications: 1. Colchicine 0.6 mg p.o. b.i.d. 2. Gabapentin 100 mg p.o. b.i.d. 3. Metoprolol succinate 50 mg p.o. b.i.d. 4. Rivaroxaban 20 mg p.o. at bedtime. STUDIES WHILE IN THE HOSPITAL: 1. Transthoracic echocardiogram. Summary: LV systolic function normal, estimated EF 60% to 65%, wall motion normal, no regional wall motion abnormalities, RV systolic function normal, trace MR, no evidence of , mild-to -moderate AR, trace AK. No significant pericardial effusion. Systolic pressure cannot be accurately estimated. 2. Nuclear medicine myocardial stress test. Impression: Findings suggestive of a moderate size area of ischemia in the anterior lateral wall and apex, left ventricular ejection fraction calculated to be 49%. 3. EKG portion: No evidence of myocardial ischemia by EKG criteria. 4. Transthoracic echocardiogram. Summary: LV cavity size normal, wall thickness mildly increased, systolic function normal, estimated EF 60% to 65%, RV systolic function mildly reduced, septal flattening of interventricular septum consistent with RV volume or pressure overload. 5. Cardiac catheterization. Conclusion: No obstructive coronary artery disease. Normal resting hemodynamics without evidence of constriction or restriction. Successful Angio-Seal right common femoral artery. Chest pain nonischemic, may be due to chronic recurring pericarditis or noncardiac causes. 6. Chest x-ray. Impression: No evidence for active cardiopulmonary disease. 7. Nuclear medicine V/Q scan. Impression: Low probability for pulmonary embolism. HISTORY OF PRESENT ILLNESS/HOSPITAL COURSE: Mr. Valentin is a 54-year-old male with a past medical history of CAD, status post CABG, history of substance abuse , history of DVT/PE, history of CVA, who presented to the emergency department on 01/01/20 with chest pain that woke him from sleeping. For full and complete details, please see the history and physical dictated by Janet Up, but in short, the patient presents with the above symptoms with associated shortness of breath, nausea, dyspnea on exertion, orthopnea. He was admitted and placed on telemetry. EKG was obtained and showed no ST changes. Troponins were negative x3. Troponins were repeated at various times throughout patients stay and were negative. The patient received 2 echocardiograms while he was in the hospital revealing normal systolic function and evidence of RV strain. Subsequently, stress test was performed and findings were suggestive of ischemia of the anterior lateral wall. Cardiac catheterization was then performed and revealed no obstructive coronary artery disease. The patient does have a history of pericarditis with subsequent subxiphoid pericardial window and pericardial stripping, therefore the suspicion for pericarditis is low at this time as he does not have a pericardium. Cardiology followed throughout the patient's stay. The patient was started on colchicine and gabapentin as his chest pain was suspected to be musculoskeletal and neuropathic. The patient as mentioned had reported RV strain on transthoracic echocardiogram. A V/Q scan was obtained and showed low probability for PE. The patient should follow with his primary care provider regarding further evaluation and management. The patient did present from [facility] [place]. He planned to be discharged to another inpatient rehab center, but prior to obtaining placement, the patient reports that his 27-year-old son has this morning. With this, he has requested to leave sooner than expected and plans to follow up outpatient rather than inpatient. Social Work is involved in the case and has made recommendations for outpatient drug rehabilitation services and he has been given information on available services. He states that he has had no chest pain in the last 24 hours. He denies shortness of breath, diaphoresis, cough, fever, chills, abdominal pain, nausea, vomiting, diarrhea, or constipation. He denies myalgias, arthralgias, dizziness, lightheadedness, headache. Mr. Valentin is stable for discharge to home. PHYSICAL EXAMINATION: Vital Signs: Temperature 98.3 temporal, heart rate 61, respiratory rate 18, oxygen saturation 99% on room air, blood pressure 125/67. General: Mr. Valentin is a well-developed, well-nourished, obese, middle-aged, black man who is seen walking in the halls. He is currently tearful reporting that he has just received news that his son . He is appropriate and cooperative and appears to be in no acute distress. HEENT: PERRL, EOMI. Visual jesus are grossly intact. Sclerae are nonicteric without injection. Hearing is grossly intact. Oral mucous membranes are moist. There are no lesions. The pharynx is clear. The tongue is at midline. Palate elevates symmetrically. Cardiovascular: Regular rate and rhythm with S1, S2 present. There are no murmurs, rubs, clicks, or gallops. There is no JVD or peripheral edema. Pulmonary: Symmetrical chest expansion without use of accessory muscles. Clear to auscultation bilaterally without rhonchi, wheeze, or rales. Abdomen: Obese. Bowel sounds in all quadrants. Soft, nontender to palpation. Musculoskeletal: Full range of motion without pain or deformity. Neuro: The patient is awake. He is alert and oriented x3. Cranial nerves II through XII are grossly intact. He moves all of his extremities. His motor strength is 5/5 bilaterally in upper and lower extremities. Equal welder gun strength. DISCHARGE PLAN: Mr. Valentin will be discharged to home. CONDITION: Good. DIET: Heart healthy. ACTIVITY: As tolerated. MEDICATIONS: Changes as above. EDUCATION: 1. Follow up with [facility], appointment scheduled. 2. Follow up with outpatient rehab; information has been given. 3. Follow up with baseball winder at [facility] within 2 weeks. 4. Return to the ER or nearest hospital if he experienced any return or worsening of symptoms, chest pain or discomfort, dizziness, lightheadedness, loss of consciousness, high fevers, chills, night sweats, or any other worrisome signs or symptoms. This is a summarized report of a complex medical history and hospital stay. For further details, please see the entire medical record. TIME SPENT: Approximately 35 minutes was spent on this discharge, greater than half that time was spent [id number] with the patient discussing discharge plans and instructions. MARY DENG [id number]/[facility] #: [id number] [place]
== END 2020-01-09 11:55 | disposition home or self-care (01) | DRG 192 ==
LOC: ED 08:53 → MEDTELE 11:42 → OBSVTOIN 01-03 16:00
PROVIDERS: ADMIT Internal Medicine; ATTEND Internal Medicine
PROC: 4A02XM4 Measurement of Cardiac Total Activity, External Approach (ICD-10-PCS; 2020-01-03)
PROC: B2111ZZ Fluoroscopy of Multiple Coronary Arteries using Low Osmolar Contrast (ICD-10-PCS; 2020-01-04)
PROC: B2161ZZ Fluoroscopy of Right and Left Heart using Low Osmolar Contrast (ICD-10-PCS; 2020-01-04)
PROC: 4A023N8 Measurement of Cardiac Sampling and Pressure, Bilateral, Percutaneous Approach (ICD-10-PCS; principal; 2020-01-04 09:30)
DX: R07.89 Other chest pain (principal); I27.20 Pulmonary hypertension, unspecified; I25.10 Atherosclerotic heart disease of native coronary artery without angina pectoris; F41.9 Anxiety disorder, unspecified; F32.9 Major depressive disorder, single episode, unspecified; F25.9 Schizoaffective disorder, unspecified; F17.210 Nicotine dependence, cigarettes, uncomplicated; E78.00 Pure hypercholesterolemia, unspecified; I10 Essential (primary) hypertension; J45.909 Unspecified asthma, uncomplicated; E78.5 Hyperlipidemia, unspecified; I08.0 Rheumatic disorders of both mitral and aortic valves; Z86.718 Personal history of other venous thrombosis and embolism; Z86.711 Personal history of pulmonary embolism; Z95.1 Presence of aortocoronary bypass graft; Z79.01 Long term (current) use of anticoagulants; Z86.73 Personal history of transient ischemic attack (TIA), and cerebral infarction without residual deficits; Z91.041 Radiographic dye allergy status; I25.2 Old myocardial infarction; Z90.2 Acquired absence of lung [part of]; Z91.013 Allergy to seafood; Z79.899 Other long term (current) drug therapy
CPT/HCPCS: 36415; 71045; 71046; 78452; 78582; 80048; 80053; 80061; 80307; 82550; 83036; 83605; 83735; 83880; 84443; 84484; 85025; 85379; 85610; 85652; 86140; 93005; 93017; 93306; 93308; 93460; 94762; 96374; 96375; 99156; 99157; 99285; A9270-GY; A9502; A9540; A9558; C1760; C1887; C8924; G0480; J1644; J1885; J2250; J2270; J2405; J2785; J2920; J3010